=== PATIENT | male | born 1940 | race Caucasian/White ===

== ENCOUNTER 2018-08-25 17:49 | Inpatient (IN) ==
[~2018-08-25 17:49] MED LIST: *HR* Etomidate 20 MG/10 ML AMPUL IVP ONE; *HR* Rocuronium Bromide 100 MG/10 ML VIAL IVC ONE
[2018-08-25] MEDS ORDERED: Dexmedetomidine HCl 400 MCG/100 ML MLS IVC ONE (17:57)
[2018-08-25] MEDS ORDERED: Isovue-370 500 ML BOTTLE IVP ONE (18:09)
[2018-08-25] MEDS ORDERED: Cefepime HCl 1,000 MG in Water for inj. (sterile) 10 ML IVP STA (18:10)
[2018-08-25] MEDS ORDERED: levoFLOXacin 750 MG/150 ML 750 MG/150 ML BAG IVPB ONE (18:11)
[2018-08-25] MEDS ORDERED: *HR* Rocuronium Bromide 50 MG/5 ML VIAL IVP ONE (18:12)
[2018-08-25] MEDS ORDERED: *HR* Etomidate 20 MG/10 ML AMPUL IVP ONE (18:12)
[2018-08-25 18:14] LABS: ABG Base Excess 6 mEq/L (-2 to 3); ABG HCO3 39 mEq/L (21-27); ABG Oxygen Saturation 99 % (95-98); ABG PCO2 90 mmHg (35-45); ABG PH 7.25 pH Units (7.32-7.45); ABG PO2 186 mmHg (85-104); ABG TCO2 42 mEq/L (20-26)
[2018-08-25] MEDS ORDERED: Dexmedetomidine HCl 400 MCG/100 ML MLS IVC SCH (18:15)
[2018-08-25] MEDS ORDERED: Furosemide 40 MG/4 ML VIAL IVP ONE (18:16)
[2018-08-25] MEDS ORDERED: Cefepime HCl 2,000 MG in Water for inj. (sterile) 20 ML IVP STA (18:36)
[2018-08-25 18:41] LABS: Basophils # 0.1 K/mcL (0.0-0.2); Basophils % 0.9 %; Eosinophils # 0.1 K/mcL (0.0-0.6); Eosinophils % 0.9 %; Hematocrit 54.5 % (37.5-50.1); Hemoglobin 16.5 g/dL (12.9-16.9); Lymphocytes # 1.3 K/mcL (0.6-4.6); Lymphocytes % 15.8 %; Mean Corpuscular HGB Conc 30.3 g/dL (31.6-35.5); Mean Corpuscular Hemoglobin 30.3 pg (28.0-33.3); Mean Corpuscular Volume 100.2 fL (83.0-100.0); Mean Platelet Volume 10.5 fL (9.4-12.4); Monocytes # 1.1 K/mcL (0.0-1.3); Monocytes % 14.2 %; Neutrophils # 5.3 K/mcL (1.6-8.9); Nucleated Red Blood Cells 1.6 /100 WBC (0); Platelet Count 125 K/mcL (140-400); Red Blood Count 5.44 M/mcL (4.19-5.50); Red Cell Distribution Width 15.9 % (11.5-14.5); Segmented Neutrophils % 67.2 %; White Blood Count 7.9 K/mcL (4.3-11.1)
[2018-08-25] MEDS ORDERED: Nitroglycerin 25 MG/250 ML INFUS..BTL IVC SCH (19:00)
[2018-08-25] MEDS ORDERED: Nitroglycerin 25 MG/250 ML INFUS..BTL IVC ONE (19:01)
[2018-08-25 19:03] LABS: Bilirubin,Urine Negative (Negative); Blood,Urine Small (Negative); Clarity,Urine Clear (Clear); Color,Urine Yellow (Yellow); Glucose,Urine (UA) Normal (Normal); Ketones,Urine Negative (Negative); Leukocyte Esterase,Urine Large (Negative); Nitrite,Urine Negative (Negative); Protein,Urine Negative (Neg-Trace); Specific Gravity,Urine 1.027 (1.010-1.025); Urobilinogen,Urine Normal (Normal)
[2018-08-25 19:07] LABS: BUN/Creatinine Ratio 20 (6-26); Blood Urea Nitrogen 18 mg/dL (8-23); Calcium 9.1 mg/dL (8.6-10.3); Carbon Dioxide 40 mEq/L (23-29); Chloride 91 mEq/L (98-107); Glucose 108 mg/dL (70-105); Osmolality,Calculated 286 (280-300); Potassium 4.2 mEq/L (3.5-5.1); Sodium 137 mEq/L (136-145); eGFR For African Americans > 60 (> 60); eGFR For Non-African Americans > 60 (> 60)
[2018-08-25 19:09] LABS: Bacteria,Urine Few per hpf (None-Few); Hyaline Casts,Urine None Seen per lpf (None-Few); Squamous Epithelial Cell,Urine Few per lpf (None-Few); WBC,Urine 50-100 per hpf (0-3)
[2018-08-25] MEDS ORDERED: 0.9 % Sodium Chloride 500 ML IVC ONE ×2 (20:33→22:05)
[2018-08-25 20:40] LABS: ABG Base Excess 11 mEq/L (-2 to 3); ABG HCO3 37 mEq/L (21-27); ABG Oxygen Saturation 87 % (95-98); ABG PCO2 50 mmHg (35-45); ABG PH 7.48 pH Units (7.32-7.45); ABG PO2 51 mmHg (85-104); ABG TCO2 39 mEq/L (20-26); Blood Gas Modality AF; Blood Gas VT 550 cc
[2018-08-25] MEDS ORDERED: *HR* Midazolam HCl 5 MG/5 ML VIAL IVP ONE ×2 (20:54)
[2018-08-25] MEDS ORDERED: Naloxone 0.4 MG/ML INJ IVP PRN (21:03)
[2018-08-25] MEDS ORDERED: Artificial Tears SOLN 15 ML BOTTLE BOTH EYES PRN (21:03)
[2018-08-25] MEDS: Ipratropium/Albuterol Neb 3 ML IH SCH (21:40)
[2018-08-25 22:51] LABS: ABG Base Excess 11 mEq/L (-2 to 3); ABG HCO3 38 mEq/L (21-27); ABG Oxygen Saturation 86 % (95-98); ABG PCO2 57 mmHg (35-45); ABG PH 7.43 pH Units (7.32-7.45); ABG PO2 52 mmHg (85-104); ABG TCO2 40 mEq/L (20-26); Blood Gas Modality AF; Blood Gas VT 550 cc
[2018-08-25] MEDS: Dexmedetomidine HCl 400 MCG/100 ML MLS IVC SCH (23:14)
[2018-08-25] MEDS: Artificial Tears SOLN 15 ML BOTTLE BOTH EYES SCH (23:34)
[2018-08-26] MEDS: *HR* Heparin 5,000 UNIT/ML VIAL SQ SCH ×4 (00:34→23:11)
[2018-08-26 02:09] LABS: Basophils % 0.5 %; Eosinophils # 0.1 K/mcL (0.0-0.6); Eosinophils % 1.3 %; Hematocrit 49.4 % (37.5-50.1); Hemoglobin 15.4 g/dL (12.9-16.9); Immature Granulocytes % 0.4 % (0-4); Lymphocytes # 1.2 K/mcL (0.6-4.6); Lymphocytes % 15.5 %; Mean Corpuscular HGB Conc 31.2 g/dL (31.6-35.5); Mean Corpuscular Hemoglobin 30.3 pg (28.0-33.3); Mean Corpuscular Volume 97.2 fL (83.0-100.0); Mean Platelet Volume 11.1 fL (9.4-12.4); Monocytes # 1.5 K/mcL (0.0-1.3); Nucleated Red Blood Cells 0.6 /100 WBC (0); Platelet Count 116 K/mcL (140-400); Red Blood Count 5.08 M/mcL (4.19-5.50); Red Cell Distribution Width 15.5 % (11.5-14.5); Segmented Neutrophils % 63.3 %; White Blood Count 7.9 K/mcL (4.3-11.1)
[2018-08-26 02:31] LABS: BUN/Creatinine Ratio 20 (6-26); Blood Urea Nitrogen 18 mg/dL (8-23); Calcium 8.5 mg/dL (8.6-10.3); Carbon Dioxide 34 mEq/L (23-29); Chloride 94 mEq/L (98-107); Glucose 91 mg/dL (70-105); Magnesium 1.9 mg/dL (1.6-2.6); Osmolality,Calculated 283 (280-300); Phosphorous 3.2 mg/dL (2.7-4.5); Potassium 4.1 mEq/L (3.5-5.1); Sodium 136 mEq/L (136-145); eGFR For African Americans > 60 (> 60); eGFR For Non-African Americans > 60 (> 60)
[2018-08-26 02:39] LABS: Platelet Estimate Normal (Normal)
[2018-08-26] MEDS: Ipratropium/Albuterol Neb 3 ML IH SCH ×4 (03:59→21:10)
[2018-08-26] MEDS ORDERED: 0.9 % Sodium Chloride 250 ML ONE ×2 (04:31→20:45)
[2018-08-26] MEDS: Artificial Tears SOLN 15 ML BOTTLE BOTH EYES SCH ×6 (05:04→23:06)
[2018-08-26] MEDS: MethylPREDNISolone 40 MG/ML VIAL IVP SCH ×4 (05:04→23:09)
[2018-08-26 05:19] LABS: ABG Base Excess 11 mEq/L (-2 to 3); ABG HCO3 38 mEq/L (21-27); ABG Oxygen Saturation 88 % (95-98); ABG PCO2 58 mmHg (35-45); ABG PH 7.43 pH Units (7.32-7.45); ABG PO2 54 mmHg (85-104); ABG TCO2 40 mEq/L (20-26); Blood Gas Modality AF; Blood Gas VT 550 cc
[2018-08-26] MEDS: Pantoprazole 40 MG VIAL IVP SCH (08:33)
[2018-08-26] MEDS: Chlorhexidine Rinse 15 ML MOUTHWASH MM SCH ×2 (08:33→20:46)
[2018-08-26] MEDS: Azithromycin 500 MG in D5% in Water 250 ML IVPB SCH (10:08)
[2018-08-26] MEDS: Dexmedetomidine HCl 400 MCG/100 ML MLS IVC SCH ×2 (14:24→15:47)
[2018-08-26] MEDS: Cefepime HCl 1,000 MG in Water for inj. (sterile) 10 ML IVP SCH (17:37)
[2018-08-26] MEDS ORDERED: levoFLOXacin 500 MG/100 ML 500 MG/100 ML BAG IVPB SCH (18:00)
[2018-08-27] MEDS: Ipratropium/Albuterol Neb 3 ML IH SCH ×4 (03:48→21:24)
[2018-08-27 04:47] LABS: Basophils % 0.1 %; Eosinophils % 0.1 %; Hemoglobin 15.2 g/dL (12.9-16.9); Immature Granulocytes % 0.7 % (0-4); Lymphocytes # 0.2 K/mcL (0.6-4.6); Mean Corpuscular HGB Conc 32.3 g/dL (31.6-35.5); Mean Corpuscular Hemoglobin 30.3 pg (28.0-33.3); Mean Corpuscular Volume 93.6 fL (83.0-100.0); Monocytes # 0.3 K/mcL (0.0-1.3); Monocytes % 4.1 %; Platelet Count 126 K/mcL (140-400); Red Blood Count 5.02 M/mcL (4.19-5.50); Red Cell Distribution Width 15.7 % (11.5-14.5); White Blood Count 7.7 K/mcL (4.3-11.1)
[2018-08-27] MEDS: Artificial Tears SOLN 15 ML BOTTLE BOTH EYES SCH ×6 (04:54→23:15)
[2018-08-27] MEDS: Dexmedetomidine HCl 400 MCG/100 ML MLS IVC SCH ×2 (04:55→20:22)
[2018-08-27] MEDS: Cefepime HCl 1,000 MG in Water for inj. (sterile) 10 ML IVP SCH ×2 (04:57→18:28)
[2018-08-27] MEDS: MethylPREDNISolone 40 MG/ML VIAL IVP SCH ×4 (04:57→23:30)
[2018-08-27 05:00] LABS: BUN/Creatinine Ratio 28 (6-26); Blood Urea Nitrogen 26 mg/dL (8-23); Calcium 8.3 mg/dL (8.6-10.3); Carbon Dioxide 32 mEq/L (23-29); Chloride 92 mEq/L (98-107); Glucose 232 mg/dL (70-105); Osmolality,Calculated 294 (280-300); Potassium 3.4 mEq/L (3.5-5.1); Sodium 136 mEq/L (136-145); eGFR For African Americans > 60 (> 60); eGFR For Non-African Americans > 60 (> 60)
[2018-08-27] MEDS ORDERED: Potassium Chloride Elixir 20 MEQ/15 ML UDC PO ONE (05:39)
[2018-08-27 05:51] LABS: ABG Base Excess 7 mEq/L (-2 to 3); ABG HCO3 33 mEq/L (21-27); ABG Oxygen Saturation 94 % (95-98); ABG PCO2 50 mmHg (35-45); ABG PH 7.42 pH Units (7.32-7.45); ABG PO2 70 mmHg (85-104); ABG TCO2 34 mEq/L (20-26); Blood Gas Modality ASSIST CONTROL; Blood Gas VT 480 cc
[2018-08-27] MEDS: Chlorhexidine Rinse 15 ML MOUTHWASH MM SCH ×2 (08:34→20:46)
[2018-08-27] MEDS: Pantoprazole 40 MG VIAL IVP SCH (08:34)
[2018-08-27] MEDS: *HR* Heparin 5,000 UNIT/ML VIAL SQ SCH ×3 (08:34→23:33)
[2018-08-27] MEDS ORDERED: Furosemide 40 MG/4 ML VIAL IVP ONE (09:07)
[2018-08-27] MEDS: Azithromycin 500 MG in D5% in Water 250 ML IVPB SCH (09:33)
[2018-08-27] MEDS ORDERED: Acetaminophen 325 MG TABLET PO ONE (18:21)
[2018-08-28] MEDS: Artificial Tears SOLN 15 ML BOTTLE BOTH EYES SCH (03:47)
[2018-08-28] MEDS: Ipratropium/Albuterol Neb 3 ML IH SCH ×5 (03:50→23:04)
[2018-08-28 03:53] LABS: Basophils % 0.2 %; Hematocrit 48.7 % (37.5-50.1); Hemoglobin 15.6 g/dL (12.9-16.9); Immature Granulocytes % 0.7 % (0-4); Lymphocytes # 0.4 K/mcL (0.6-4.6); Lymphocytes % 3.1 %; Mean Corpuscular Hemoglobin 30.8 pg (28.0-33.3); Mean Corpuscular Volume 96.2 fL (83.0-100.0); Monocytes # 0.8 K/mcL (0.0-1.3); Monocytes % 6.2 %; Nucleated Red Blood Cells 0.3 /100 WBC (0); Platelet Count 138 K/mcL (140-400); Red Blood Count 5.06 M/mcL (4.19-5.50); Red Cell Distribution Width 15.8 % (11.5-14.5); Segmented Neutrophils % 89.8 %
[2018-08-28 03:55] LABS: White Blood Count 12.2 K/mcL (4.3-11.1)
[2018-08-28 04:20] LABS: BUN/Creatinine Ratio 34 (6-26); Blood Urea Nitrogen 32 mg/dL (8-23); Calcium 8.6 mg/dL (8.6-10.3); Carbon Dioxide 35 mEq/L (23-29); Chloride 94 mEq/L (98-107); Glucose 180 mg/dL (70-105); Osmolality,Calculated 293 (280-300); Potassium 4.5 mEq/L (3.5-5.1); Sodium 136 mEq/L (136-145); eGFR For African Americans > 60 (> 60); eGFR For Non-African Americans > 60 (> 60)
[2018-08-28] MEDS: Cefepime HCl 1,000 MG in Water for inj. (sterile) 10 ML IVP SCH ×2 (06:08→16:53)
[2018-08-28] MEDS ORDERED: MethylPREDNISolone 40 MG/ML VIAL IVP SCH (07:45)
[2018-08-28] MEDS: *HR* Heparin 5,000 UNIT/ML VIAL SQ SCH ×3 (08:13→23:33)
[2018-08-28] MEDS ORDERED: Ipratropium/Albuterol Neb 3 ML IH SCH (08:30)
[2018-08-28] MEDS ORDERED: predniSONE 20 MG TABLET PO SCH (09:00)
[2018-08-28] MEDS: Azithromycin 500 MG in D5% in Water 250 ML IVPB SCH (09:01)
[2018-08-28] MEDS ORDERED: Ipratropium/Albuterol Neb 3 ML IH PRN (09:54)
[2018-08-28] MEDS ORDERED: Naloxone 0.4 MG/ML INJ IVP PRN (09:54)
[2018-08-28] MEDS ORDERED: Budesonide/Formoterol 160/4.5 1 PUFF INH IH SCH (10:00)
[2018-08-28] MEDS: Ziprasidone 80 MG CAPSULE PO SCH ×2 (10:43→16:53)
[2018-08-28] MEDS: Famotidine 20 MG TABLET PO SCH ×2 (10:43→20:32)
[2018-08-28] MEDS: Sennosides/Docusate Sodium TABLET PO SCH ×2 (10:43→20:32)
[2018-08-28] MEDS: *HR* LORazepam 1 MG TABLET PO SCH ×2 (10:43→20:32)
[2018-08-28] MEDS: Budesonide/Formoterol 160/4.5 1 PUFF INH IH SCH ×2 (10:54→20:14)
[2018-08-29] MEDS: Ipratropium/Albuterol Neb 3 ML IH SCH ×6 (03:24→23:24)
[2018-08-29] MEDS: Cefepime HCl 1,000 MG in Water for inj. (sterile) 10 ML IVP SCH ×2 (04:49→17:09)
[2018-08-29 05:04] LABS: Basophils % 0.2 %; Hematocrit 47.7 % (37.5-50.1); Hemoglobin 15.3 g/dL (12.9-16.9); Immature Granulocytes % 0.4 % (0-4); Lymphocytes # 1.1 K/mcL (0.6-4.6); Lymphocytes % 10.6 %; Mean Corpuscular HGB Conc 32.1 g/dL (31.6-35.5); Mean Corpuscular Hemoglobin 30.2 pg (28.0-33.3); Mean Corpuscular Volume 94.1 fL (83.0-100.0); Mean Platelet Volume 11.4 fL (9.4-12.4); Monocytes # 1.1 K/mcL (0.0-1.3); Monocytes % 10.8 %; Neutrophils # 7.7 K/mcL (1.6-8.9); Platelet Count 140 K/mcL (140-400); Red Blood Count 5.07 M/mcL (4.19-5.50); Red Cell Distribution Width 15.7 % (11.5-14.5); White Blood Count 9.9 K/mcL (4.3-11.1)
[2018-08-29 05:27] LABS: BUN/Creatinine Ratio 34 (6-26); Blood Urea Nitrogen 24 mg/dL (8-23); Calcium 8.5 mg/dL (8.6-10.3); Carbon Dioxide 33 mEq/L (23-29); Chloride 99 mEq/L (98-107); Glucose 123 mg/dL (70-105); Osmolality,Calculated 289 (280-300); Potassium 4.1 mEq/L (3.5-5.1); Sodium 137 mEq/L (136-145); eGFR For African Americans > 60 (> 60); eGFR For Non-African Americans > 60 (> 60)
[2018-08-29] MEDS: Budesonide/Formoterol 160/4.5 1 PUFF INH IH SCH ×2 (07:47→20:32)
[2018-08-29] MEDS: *HR* LORazepam 1 MG TABLET PO SCH ×2 (09:32→22:32)
[2018-08-29] MEDS: Sennosides/Docusate Sodium TABLET PO SCH ×2 (09:34→22:33)
[2018-08-29] MEDS: Famotidine 20 MG TABLET PO SCH ×2 (09:34→22:33)
[2018-08-29] MEDS: Ziprasidone 80 MG CAPSULE PO SCH ×2 (09:34→17:08)
[2018-08-29] MEDS: predniSONE 20 MG TABLET PO SCH (09:34)
[2018-08-29] MEDS: Azithromycin 500 MG in D5% in Water 250 ML IVPB SCH (09:35)
[2018-08-29] MEDS: *HR* Heparin 5,000 UNIT/ML VIAL SQ SCH ×3 (09:35→22:33)
[2018-08-30] MEDS: Ipratropium/Albuterol Neb 3 ML IH SCH ×6 (03:39→23:45)
[2018-08-30 05:13] LABS: Basophils % 0.1 %; Hemoglobin 15.8 g/dL (12.9-16.9); Immature Granulocytes % 0.5 % (0-4); Lymphocytes # 1.3 K/mcL (0.6-4.6); Lymphocytes % 16.4 %; Mean Corpuscular HGB Conc 32.2 g/dL (31.6-35.5); Mean Corpuscular Hemoglobin 30.5 pg (28.0-33.3); Mean Corpuscular Volume 94.6 fL (83.0-100.0); Mean Platelet Volume 10.7 fL (9.4-12.4); Monocytes # 0.9 K/mcL (0.0-1.3); Monocytes % 11.2 %; Neutrophils # 5.9 K/mcL (1.6-8.9); Platelet Count 119 K/mcL (140-400); Red Blood Count 5.18 M/mcL (4.19-5.50); Red Cell Distribution Width 15.7 % (11.5-14.5); Segmented Neutrophils % 71.8 %; White Blood Count 8.2 K/mcL (4.3-11.1)
[2018-08-30] MEDS: Cefepime HCl 1,000 MG in Water for inj. (sterile) 10 ML IVP SCH (05:32)
[2018-08-30] MEDS: Budesonide/Formoterol 160/4.5 1 PUFF INH IH SCH ×2 (07:27→20:20)
[2018-08-30 08:46] LABS: BUN/Creatinine Ratio 34 (6-26); Blood Urea Nitrogen 25 mg/dL (8-23); Calcium 8.8 mg/dL (8.6-10.3); Carbon Dioxide 34 mEq/L (23-29); Chloride 99 mEq/L (98-107); Glucose 96 mg/dL (70-105); Osmolality,Calculated 288 (280-300); Potassium 4.1 mEq/L (3.5-5.1); Sodium 137 mEq/L (136-145); eGFR For African Americans > 60 (> 60); eGFR For Non-African Americans > 60 (> 60)
[2018-08-30] MEDS: Azithromycin 500 MG in D5% in Water 250 ML IVPB SCH (09:15)
[2018-08-30] MEDS: Famotidine 20 MG TABLET PO SCH ×2 (09:15→20:35)
[2018-08-30] MEDS: predniSONE 20 MG TABLET PO SCH (09:16)
[2018-08-30] MEDS: Sennosides/Docusate Sodium TABLET PO SCH ×2 (09:16→20:35)
[2018-08-30] MEDS: *HR* LORazepam 1 MG TABLET PO SCH ×2 (09:16→20:35)
[2018-08-30] MEDS: *HR* Heparin 5,000 UNIT/ML VIAL SQ SCH ×3 (09:16→23:13)
[2018-08-30] MEDS: Furosemide 40 MG TABLET PO SCH (09:16)
[2018-08-30] MEDS: Aspirin 81 MG TAB.CHEW PO SCH (09:16)
[2018-08-30] MEDS: Ziprasidone 80 MG CAPSULE PO SCH ×2 (09:16→16:46)
[2018-08-31] MEDS: Ipratropium/Albuterol Neb 3 ML IH SCH ×6 (03:46→23:22)
[2018-08-31 07:24] LABS: Basophils % 0.1 %; Eosinophils # 0.1 K/mcL (0.0-0.6); Eosinophils % 0.8 %; Hematocrit 49.8 % (37.5-50.1); Hemoglobin 16.4 g/dL (12.9-16.9); Immature Granulocytes % 0.5 % (0-4); Lymphocytes # 1.7 K/mcL (0.6-4.6); Lymphocytes % 18.3 %; Mean Corpuscular HGB Conc 32.9 g/dL (31.6-35.5); Mean Corpuscular Hemoglobin 30.3 pg (28.0-33.3); Mean Corpuscular Volume 91.9 fL (83.0-100.0); Mean Platelet Volume 10.5 fL (9.4-12.4); Monocytes % 11.2 %; Neutrophils # 6.4 K/mcL (1.6-8.9); Platelet Count 132 K/mcL (140-400); Red Blood Count 5.42 M/mcL (4.19-5.50); Red Cell Distribution Width 15.6 % (11.5-14.5); Segmented Neutrophils % 69.1 %; White Blood Count 9.3 K/mcL (4.3-11.1)
[2018-08-31] MEDS: Budesonide/Formoterol 160/4.5 1 PUFF INH IH SCH ×2 (07:37→20:16)
[2018-08-31 07:43] LABS: BUN/Creatinine Ratio 30 (6-26); Blood Urea Nitrogen 24 mg/dL (8-23); Calcium 8.8 mg/dL (8.6-10.3); Carbon Dioxide 32 mEq/L (23-29); Chloride 97 mEq/L (98-107); Glucose 98 mg/dL (70-105); Osmolality,Calculated 284 (280-300); Potassium 4.3 mEq/L (3.5-5.1); Sodium 135 mEq/L (136-145); eGFR For African Americans > 60 (> 60); eGFR For Non-African Americans > 60 (> 60)
[2018-08-31] MEDS: *HR* Heparin 5,000 UNIT/ML VIAL SQ SCH ×3 (09:20→23:42)
[2018-08-31] MEDS: *HR* LORazepam 1 MG TABLET PO SCH ×2 (09:20→20:42)
[2018-08-31] MEDS: Furosemide 40 MG TABLET PO SCH (09:21)
[2018-08-31] MEDS: Aspirin 81 MG TAB.CHEW PO SCH (09:21)
[2018-08-31] MEDS: predniSONE 20 MG TABLET PO SCH (09:21)
[2018-08-31] MEDS: Famotidine 20 MG TABLET PO SCH ×2 (09:21→20:42)
[2018-08-31] MEDS: Ziprasidone 80 MG CAPSULE PO SCH ×2 (09:21→16:34)
[2018-08-31] MEDS: Sennosides/Docusate Sodium TABLET PO SCH ×2 (09:21→20:41)
[2018-08-31] MEDS ORDERED: Fosfomycin Tromethamine 3 GM Packet PO ONE (13:15)
[2018-09-01] MEDS: Ipratropium/Albuterol Neb 3 ML IH SCH ×5 (03:04→19:32)
[2018-09-01] MEDS: Budesonide/Formoterol 160/4.5 1 PUFF INH IH SCH ×2 (07:25→19:29)
[2018-09-01 08:23] LABS: BUN/Creatinine Ratio 27 (6-26); Blood Urea Nitrogen 22 mg/dL (8-23); Calcium 8.7 mg/dL (8.6-10.3); Carbon Dioxide 32 mEq/L (23-29); Chloride 96 mEq/L (98-107); Glucose 92 mg/dL (70-105); Osmolality,Calculated 279 (280-300); Potassium 4.4 mEq/L (3.5-5.1); Sodium 133 mEq/L (136-145); eGFR For African Americans > 60 (> 60); eGFR For Non-African Americans > 60 (> 60)
[2018-09-01] MEDS: Sennosides/Docusate Sodium TABLET PO SCH ×2 (08:56→20:21)
[2018-09-01] MEDS: predniSONE 20 MG TABLET PO SCH (08:56)
[2018-09-01] MEDS: Famotidine 20 MG TABLET PO SCH ×2 (08:56→20:21)
[2018-09-01] MEDS: Furosemide 40 MG TABLET PO SCH (08:57)
[2018-09-01] MEDS: Aspirin 81 MG TAB.CHEW PO SCH (08:57)
[2018-09-01] MEDS: *HR* Heparin 5,000 UNIT/ML VIAL SQ SCH ×3 (08:57→23:30)
[2018-09-01] MEDS: Ziprasidone 80 MG CAPSULE PO SCH ×2 (08:57→17:26)
[2018-09-01] MEDS: *HR* LORazepam 1 MG TABLET PO SCH ×2 (08:57→20:21)
[2018-09-02] MEDS: Ipratropium/Albuterol Neb 3 ML IH SCH ×7 (00:14→23:07)
[2018-09-02] MEDS: Budesonide/Formoterol 160/4.5 1 PUFF INH IH SCH ×2 (07:29→19:50)
[2018-09-02] MEDS: *HR* Heparin 5,000 UNIT/ML VIAL SQ SCH ×2 (08:50→15:11)
[2018-09-02] MEDS: Sennosides/Docusate Sodium TABLET PO SCH ×2 (08:50→20:13)
[2018-09-02] MEDS: Famotidine 20 MG TABLET PO SCH ×2 (08:51→20:13)
[2018-09-02] MEDS: *HR* LORazepam 1 MG TABLET PO SCH ×2 (08:51→20:13)
[2018-09-02] MEDS: predniSONE 20 MG TABLET PO SCH (08:51)
[2018-09-02] MEDS: Ziprasidone 80 MG CAPSULE PO SCH ×2 (08:51→17:20)
[2018-09-02] MEDS: Aspirin 81 MG TAB.CHEW PO SCH (08:51)
[2018-09-02 09:23] LABS: BUN/Creatinine Ratio 30 (6-26); Blood Urea Nitrogen 25 mg/dL (8-23); Calcium 8.8 mg/dL (8.6-10.3); Carbon Dioxide 28 mEq/L (23-29); Chloride 95 mEq/L (98-107); Glucose 93 mg/dL (70-105); Osmolality,Calculated 276 (280-300); Potassium 4.1 mEq/L (3.5-5.1); Sodium 131 mEq/L (136-145); eGFR For African Americans > 60 (> 60); eGFR For Non-African Americans > 60 (> 60)
[2018-09-02] MEDS ORDERED: 0.9 % Sodium Chloride 500 ML IVC SCH ×2 (17:00→17:15)
[2018-09-03] MEDS: *HR* Heparin 5,000 UNIT/ML VIAL SQ SCH ×3 (00:28→15:32)
[2018-09-03 03:45] LABS: BUN/Creatinine Ratio 30 (6-26); Blood Urea Nitrogen 24 mg/dL (8-23); Calcium 8.8 mg/dL (8.6-10.3); Carbon Dioxide 31 mEq/L (23-29); Chloride 98 mEq/L (98-107); Glucose 129 mg/dL (70-105); Osmolality,Calculated 282 (280-300); Potassium 4.5 mEq/L (3.5-5.1); Sodium 133 mEq/L (136-145); eGFR For African Americans > 60 (> 60); eGFR For Non-African Americans > 60 (> 60)
[2018-09-03] MEDS: Ipratropium/Albuterol Neb 3 ML IH SCH ×6 (03:46→23:42)
[2018-09-03] MEDS: Budesonide/Formoterol 160/4.5 1 PUFF INH IH SCH ×2 (07:36→20:05)
[2018-09-03] MEDS: Ziprasidone 80 MG CAPSULE PO SCH ×2 (08:19→16:19)
[2018-09-03] MEDS: *HR* LORazepam 1 MG TABLET PO SCH ×2 (08:19→20:19)
[2018-09-03] MEDS: Famotidine 20 MG TABLET PO SCH ×2 (08:19→20:20)
[2018-09-03] MEDS: Sennosides/Docusate Sodium TABLET PO SCH ×2 (08:19→20:19)
[2018-09-03] MEDS: Aspirin 81 MG TAB.CHEW PO SCH (08:19)
[2018-09-03] MEDS: predniSONE 20 MG TABLET PO SCH (08:23)
[2018-09-04] MEDS: *HR* Heparin 5,000 UNIT/ML VIAL SQ SCH ×3 (01:30→15:08)
[2018-09-04] MEDS: Ipratropium/Albuterol Neb 3 ML IH SCH ×6 (04:06→23:19)
[2018-09-04] MEDS: Budesonide/Formoterol 160/4.5 1 PUFF INH IH SCH ×2 (07:24→19:44)
[2018-09-04] MEDS: Famotidine 20 MG TABLET PO SCH ×2 (08:18→20:22)
[2018-09-04] MEDS: Aspirin 81 MG TAB.CHEW PO SCH (08:18)
[2018-09-04] MEDS: predniSONE 20 MG TABLET PO SCH (08:18)
[2018-09-04] MEDS: Ziprasidone 80 MG CAPSULE PO SCH ×2 (08:18→16:55)
[2018-09-04] MEDS: Sennosides/Docusate Sodium TABLET PO SCH ×2 (08:18→20:22)
[2018-09-04] MEDS: *HR* LORazepam 1 MG TABLET PO SCH ×2 (08:18→20:22)
[2018-09-04 08:30] LABS: BUN/Creatinine Ratio 32 (6-26); Blood Urea Nitrogen 27 mg/dL (8-23); Calcium 8.6 mg/dL (8.6-10.3); Carbon Dioxide 30 mEq/L (23-29); Chloride 99 mEq/L (98-107); Glucose 98 mg/dL (70-105); Osmolality,Calculated 283 (280-300); Potassium 4.4 mEq/L (3.5-5.1); Sodium 134 mEq/L (136-145); eGFR For African Americans > 60 (> 60); eGFR For Non-African Americans > 60 (> 60)
[2018-09-05] MEDS: Ipratropium/Albuterol Neb 3 ML IH SCH ×5 (04:04→20:01)
[2018-09-05] MEDS: Budesonide/Formoterol 160/4.5 1 PUFF INH IH SCH ×2 (07:31→20:01)
[2018-09-05] MEDS: *HR* LORazepam 1 MG TABLET PO SCH ×2 (08:44→20:13)
[2018-09-05] MEDS: Sennosides/Docusate Sodium TABLET PO SCH ×2 (08:44→20:13)
[2018-09-05] MEDS: Ziprasidone 80 MG CAPSULE PO SCH ×2 (08:45→15:42)
[2018-09-05] MEDS: *HR* Heparin 5,000 UNIT/ML VIAL SQ SCH ×3 (08:45→15:42)
[2018-09-05] MEDS: Aspirin 81 MG TAB.CHEW PO SCH (08:45)
[2018-09-05] MEDS: Famotidine 20 MG TABLET PO SCH ×2 (08:45→20:13)
[2018-09-05] MEDS: predniSONE 20 MG TABLET PO SCH (08:45)
[2018-09-06] MEDS: Ipratropium/Albuterol Neb 3 ML IH SCH ×3 (00:04→07:55)
[2018-09-06] MEDS: *HR* Heparin 5,000 UNIT/ML VIAL SQ SCH ×2 (00:45→08:59)
[2018-09-06 07:15] VITALS: BP 152/81
[2018-09-06] MEDS: Budesonide/Formoterol 160/4.5 1 PUFF INH IH SCH (07:55)
[2018-09-06] MEDS: predniSONE 20 MG TABLET PO SCH (08:58)
[2018-09-06] MEDS: Aspirin 81 MG TAB.CHEW PO SCH (08:58)
[2018-09-06] MEDS: Sennosides/Docusate Sodium TABLET PO SCH (08:58)
[2018-09-06] MEDS: Famotidine 20 MG TABLET PO SCH (08:58)
[2018-09-06] MEDS: Ziprasidone 80 MG CAPSULE PO SCH (08:58)
[2018-09-06] MEDS: *HR* LORazepam 1 MG TABLET PO SCH (08:58)
== END 2018-09-06 10:08 | DRG 208 ==
LOC: EMEROOARM 17:49 → ICNU 20:34 → SUATTDRO 20:34 → ICNU 21:12 → 2NENU 08-28 09:46
PROVIDERS: ADMIT Family Medicine; ATTEND Internal Medicine

== ENCOUNTER 2020-01-17 16:43 | Inpatient (IN) ==
[2020-01-17 17:31] LABS: Basophils % 0.8 %; Hemoglobin 12.3 g/dL (12.9-16.9); Immature Granulocytes % 0.6 % (0-4)
[2020-01-17 17:34] LABS: Basophils # 0.1 K/mcL (0.0-0.2); Eosinophils # 0.4 K/mcL (0.0-0.6); Eosinophils % 4.6 %; Hematocrit 42.5 % (37.5-50.1); Lymphocytes % 21.1 %; Mean Corpuscular HGB Conc 28.9 g/dL (31.6-35.5); Mean Corpuscular Hemoglobin 29.4 pg (28.0-33.3); Mean Corpuscular Volume 101.4 fL (83.0-100.0); Mean Platelet Volume 11.4 fL (9.4-12.4); Monocytes % 12.8 %; Neutrophils # 4.7 K/mcL (1.6-8.9); Platelet Count 138 K/mcL (140-400); Red Blood Count 4.19 M/mcL (4.19-5.50); Red Cell Distribution Width 15.3 % (11.5-14.5); Segmented Neutrophils % 60.1 %; White Blood Count 7.8 K/mcL (4.3-11.1)
[2020-01-17 17:35] LABS: Lymphocytes # 1.7 K/mcL (0.6-4.6)
[2020-01-17 17:39] LABS: ABG Base Excess 8 mEq/L (-2 to 3); ABG HCO3 40 mEq/L (21-27); ABG Oxygen Saturation 96 % (95-98); ABG PCO2 88 mmHg (35-45); ABG PH 7.26 pH Units (7.32-7.45); ABG PO2 101 mmHg (85-104); ABG TCO2 42 mEq/L (20-26)
[2020-01-17 17:42] LABS: BUN/Creatinine Ratio 24 (6-26); Blood Urea Nitrogen 25 mg/dL (8-23); Calcium 8.8 mg/dL (8.6-10.3); Carbon Dioxide 39 mEq/L (23-29); Chloride 99 mEq/L (98-107); Glucose 125 mg/dL (70-105); Osmolality,Calculated 294 (280-300); Potassium 4.5 mEq/L (3.5-5.1); Sodium 139 mEq/L (136-145); eGFR For African Americans > 60 (> 60); eGFR For Non-African Americans > 60 (> 60)
[2020-01-17 17:51] LABS: Platelet Estimate Decreased (Normal)
[2020-01-17 17:52] LABS: Hypochromasia Present (Not Present); Poikilocytosis 1+ (Not Present); Stomatocytes 1+ (Not Present)
[2020-01-17 17:59] LABS: Troponin I < 0.03 ng/mL (< 0.04)
[2020-01-17 18:37] LABS: ABG Base Excess 11 mEq/L (-2 to 3); ABG HCO3 41 mEq/L (21-27); ABG Oxygen Saturation 91 % (95-98); ABG PCO2 78 mmHg (35-45); ABG PH 7.33 pH Units (7.32-7.45); ABG PO2 68 mmHg (85-104); ABG TCO2 44 mEq/L (20-26)
[2020-01-17] MEDS ORDERED: Azithromycin 500 MG in 0.9 % Sodium Chloride 250 ML IVPB ONE (19:08)
[2020-01-17] MEDS ORDERED: Naloxone 0.4 MG/ML INJ IVP PRN (20:59)
[2020-01-17] MEDS ORDERED: Acetaminophen 325 MG TABLET PO PRN ×2 (20:59)
[2020-01-18] MEDS: *HR* Heparin 5,000 UNIT/ML VIAL SQ SCH ×4 (00:41→23:49)
[2020-01-18 03:46] LABS: ABG Base Excess 4 mEq/L (-2 to 3); ABG HCO3 35 mEq/L (21-27); ABG Oxygen Saturation 91 % (95-98); ABG PCO2 83 mmHg (35-45); ABG PH 7.23 pH Units (7.32-7.45); ABG PO2 76 mmHg (85-104); ABG TCO2 37 mEq/L (20-26); Blood Gas Modality NIV
[2020-01-18] MEDS ORDERED: Furosemide 40 MG/4 ML VIAL IVP ONE (03:48)
[2020-01-18 07:40] LABS: Hematocrit 39.4 % (37.5-50.1); Hemoglobin 11.8 g/dL (12.9-16.9); Immature Platelets 8.3 % (1.1-6.1); Mean Corpuscular HGB Conc 29.9 g/dL (31.6-35.5); Mean Corpuscular Hemoglobin 30.1 pg (28.0-33.3); Mean Corpuscular Volume 100.5 fL (83.0-100.0); Mean Platelet Volume 11.6 fL (9.4-12.4); Red Blood Count 3.92 M/mcL (4.19-5.50); Red Cell Distribution Width 15.2 % (11.5-14.5); White Blood Count 7.6 K/mcL (4.3-11.1)
[2020-01-18 07:57] LABS: BUN/Creatinine Ratio 23 (6-26); Blood Urea Nitrogen 23 mg/dL (8-23); Calcium 8.4 mg/dL (8.6-10.3); Carbon Dioxide 36 mEq/L (23-29); Chloride 99 mEq/L (98-107); Glucose 156 mg/dL (70-105); Osmolality,Calculated 295 (280-300); Potassium 4.2 mEq/L (3.5-5.1); Sodium 139 mEq/L (136-145); eGFR For African Americans > 60 (> 60); eGFR For Non-African Americans > 60 (> 60)
[2020-01-18] MEDS ORDERED: polyethylene glycoL 3350 17 GM POWD.PACK PO PRN (17:20)
[2020-01-18] MEDS: Spironolactone 25 MG TABLET PO SCH (17:32)
[2020-01-18] MEDS: Famotidine 20 MG TABLET PO SCH (20:13)
[2020-01-18] MEDS: Gabapentin 300 MG CAPSULE PO SCH (20:13)
[2020-01-18] MEDS: Furosemide 40 MG/4 ML VIAL IVP SCH (20:13)
[2020-01-18] MEDS: Budesonide/Formoterol 160/4.5 1 PUFF INH IH SCH (20:46)
[2020-01-18] MEDS ORDERED: Ipratropium/Albuterol Neb 3 ML IH PRN (22:00)
[2020-01-19 00:57] LABS: Basophils % 0.5 %; Eosinophils # 0.1 K/mcL (0.0-0.6); Eosinophils % 1.3 %; Hematocrit 37.9 % (37.5-50.1); Hemoglobin 11.4 g/dL (12.9-16.9); Immature Granulocytes % 0.5 % (0-4); Lymphocytes # 1.6 K/mcL (0.6-4.6); Lymphocytes % 18.8 %; Mean Corpuscular HGB Conc 30.1 g/dL (31.6-35.5); Mean Corpuscular Hemoglobin 29.4 pg (28.0-33.3); Mean Corpuscular Volume 97.7 fL (83.0-100.0); Mean Platelet Volume 10.7 fL (9.4-12.4); Monocytes # 0.8 K/mcL (0.0-1.3); Monocytes % 9.4 %; Neutrophils # 5.8 K/mcL (1.6-8.9); Platelet Count 129 K/mcL (140-400); Red Blood Count 3.88 M/mcL (4.19-5.50); Red Cell Distribution Width 15.2 % (11.5-14.5); Segmented Neutrophils % 69.5 %; White Blood Count 8.3 K/mcL (4.3-11.1)
[2020-01-19 00:58] LABS: VBG HCO3 36 mEq/L (21-27); VBG PCO2 56 mmHg (41-51); VBG PH 7.41 pH Units (7.32-7.42); VBG PO2 196 mmHg (25-50)
[2020-01-19 01:16] LABS: BUN/Creatinine Ratio 28 (6-26); Blood Urea Nitrogen 27 mg/dL (8-23); Calcium 8.2 mg/dL (8.6-10.3); Carbon Dioxide 35 mEq/L (23-29); Chloride 98 mEq/L (98-107); Glucose 128 mg/dL (70-105); Osmolality,Calculated 295 (280-300); Sodium 139 mEq/L (136-145); eGFR For African Americans > 60 (> 60); eGFR For Non-African Americans > 60 (> 60)
[2020-01-19] MEDS: *HR* Heparin 5,000 UNIT/ML VIAL SQ SCH ×3 (05:58→20:20)
[2020-01-19] MEDS: Budesonide/Formoterol 160/4.5 1 PUFF INH IH SCH ×2 (07:54→20:35)
[2020-01-19] MEDS: Aspirin 81 MG TAB.CHEW PO SCH (09:00)
[2020-01-19] MEDS: lisinopriL 5 MG TABLET PO SCH (09:00)
[2020-01-19] MEDS: Spironolactone 25 MG TABLET PO SCH (09:01)
[2020-01-19] MEDS: Gabapentin 300 MG CAPSULE PO SCH ×2 (09:01→20:19)
[2020-01-19] MEDS: Ziprasidone 80 MG CAPSULE PO SCH ×2 (09:01→17:44)
[2020-01-19] MEDS: Furosemide 40 MG/4 ML VIAL IVP SCH ×2 (09:01→20:19)
[2020-01-19] MEDS: Cholecalciferol (D-3) 1,000 UNIT (25MCG) TABLET PO SCH (09:01)
[2020-01-19] MEDS: Famotidine 20 MG TABLET PO SCH (20:18)
[2020-01-20 07:09] LABS: Basophils % 0.6 %
[2020-01-20 07:11] LABS: Eosinophils # 0.2 K/mcL (0.0-0.6); Hematocrit 38.7 % (37.5-50.1); Hemoglobin 11.7 g/dL (12.9-16.9); Immature Granulocytes % 0.8 % (0-4); Immature Platelets 6.4 % (1.1-6.1); Lymphocytes # 1.3 K/mcL (0.6-4.6); Lymphocytes % 19.1 %; Mean Corpuscular HGB Conc 30.2 g/dL (31.6-35.5); Mean Corpuscular Hemoglobin 29.3 pg (28.0-33.3); Mean Platelet Volume 11.4 fL (9.4-12.4); Monocytes # 0.9 K/mcL (0.0-1.3); Monocytes % 13.7 %; Neutrophils # 4.2 K/mcL (1.6-8.9); Platelet Count 130 K/mcL (140-400); Red Blood Count 3.99 M/mcL (4.19-5.50); Red Cell Distribution Width 15.1 % (11.5-14.5); Segmented Neutrophils % 62.8 %; White Blood Count 6.7 K/mcL (4.3-11.1)
[2020-01-20 07:22] LABS: BUN/Creatinine Ratio 26 (6-26); Blood Urea Nitrogen 27 mg/dL (8-23); Calcium 8.9 mg/dL (8.6-10.3); Carbon Dioxide 36 mEq/L (23-29); Chloride 100 mEq/L (98-107); Glucose 134 mg/dL (70-105); Osmolality,Calculated 297 (280-300); Potassium 3.7 mEq/L (3.5-5.1); Sodium 140 mEq/L (136-145); eGFR For African Americans > 60 (> 60); eGFR For Non-African Americans > 60 (> 60)
[2020-01-20] MEDS: Budesonide/Formoterol 160/4.5 1 PUFF INH IH SCH ×2 (07:48→20:16)
[2020-01-20] MEDS: *HR* Heparin 5,000 UNIT/ML VIAL SQ SCH ×3 (08:14→20:44)
[2020-01-20] MEDS: Furosemide 40 MG/4 ML VIAL IVP SCH ×2 (08:14→20:43)
[2020-01-20] MEDS: Cholecalciferol (D-3) 1,000 UNIT (25MCG) TABLET PO SCH (08:15)
[2020-01-20] MEDS: Spironolactone 25 MG TABLET PO SCH (08:15)
[2020-01-20] MEDS: lisinopriL 5 MG TABLET PO SCH (08:15)
[2020-01-20] MEDS: Aspirin 81 MG TAB.CHEW PO SCH (08:16)
[2020-01-20] MEDS: Ziprasidone 80 MG CAPSULE PO SCH ×2 (08:16→18:06)
[2020-01-20] MEDS: Gabapentin 300 MG CAPSULE PO SCH ×2 (08:16→20:43)
[2020-01-20] MEDS: Famotidine 20 MG TABLET PO SCH (20:42)
[2020-01-21 04:29] LABS: Basophils # 0.1 K/mcL (0.0-0.2); Basophils % 0.7 %; Eosinophils # 0.2 K/mcL (0.0-0.6); Eosinophils % 2.7 %; Hematocrit 40.3 % (37.5-50.1); Hemoglobin 12.5 g/dL (12.9-16.9); Immature Granulocytes % 0.7 % (0-4); Lymphocytes # 1.7 K/mcL (0.6-4.6); Mean Corpuscular Hemoglobin 29.8 pg (28.0-33.3); Mean Corpuscular Volume 96.2 fL (83.0-100.0); Mean Platelet Volume 11.1 fL (9.4-12.4); Monocytes % 12.9 %; Neutrophils # 4.4 K/mcL (1.6-8.9); Platelet Count 144 K/mcL (140-400); Red Blood Count 4.19 M/mcL (4.19-5.50); Red Cell Distribution Width 15.3 % (11.5-14.5); White Blood Count 7.4 K/mcL (4.3-11.1)
[2020-01-21 04:48] LABS: BUN/Creatinine Ratio 22 (6-26); Blood Urea Nitrogen 26 mg/dL (8-23); Calcium 9.1 mg/dL (8.6-10.3); Carbon Dioxide 36 mEq/L (23-29); Chloride 97 mEq/L (98-107); Glucose 135 mg/dL (70-105); Magnesium 1.9 mg/dL (1.6-2.6); Osmolality,Calculated 295 (280-300); Potassium 3.7 mEq/L (3.5-5.1); Sodium 139 mEq/L (136-145); eGFR For African Americans > 60 (> 60); eGFR For Non-African Americans 59 (> 60)
[2020-01-21] MEDS: *HR* Heparin 5,000 UNIT/ML VIAL SQ SCH ×3 (05:03→22:55)
[2020-01-21 05:04] LABS: VBG HCO3 36 mEq/L (21-27); VBG PCO2 61 mmHg (41-51); VBG PH 7.38 pH Units (7.32-7.42); VBG PO2 62 mmHg (25-50)
[2020-01-21] MEDS: Budesonide/Formoterol 160/4.5 1 PUFF INH IH SCH ×2 (07:49→22:01)
[2020-01-21] MEDS: Cholecalciferol (D-3) 1,000 UNIT (25MCG) TABLET PO SCH (08:53)
[2020-01-21] MEDS: Spironolactone 25 MG TABLET PO SCH (08:53)
[2020-01-21] MEDS: Aspirin 81 MG TAB.CHEW PO SCH (08:53)
[2020-01-21] MEDS: Gabapentin 300 MG CAPSULE PO SCH ×2 (08:53→22:55)
[2020-01-21] MEDS: lisinopriL 5 MG TABLET PO SCH (08:53)
[2020-01-21] MEDS: Ziprasidone 80 MG CAPSULE PO SCH ×2 (08:53→17:36)
[2020-01-21] MEDS: Furosemide 40 MG/4 ML VIAL IVP SCH ×2 (08:54→22:55)
[2020-01-21] MEDS: Famotidine 20 MG TABLET PO SCH (22:54)
[2020-01-22] MEDS: *HR* Heparin 5,000 UNIT/ML VIAL SQ SCH ×3 (05:23→21:54)
[2020-01-22 06:11] LABS: Basophils # 0.1 K/mcL (0.0-0.2); Eosinophils # 0.3 K/mcL (0.0-0.6); Eosinophils % 3.7 %; Hematocrit 42.9 % (37.5-50.1); Immature Granulocytes % 0.7 % (0-4); Lymphocytes # 1.5 K/mcL (0.6-4.6); Lymphocytes % 21.2 %; Mean Corpuscular HGB Conc 30.3 g/dL (31.6-35.5); Mean Corpuscular Hemoglobin 29.5 pg (28.0-33.3); Mean Corpuscular Volume 97.5 fL (83.0-100.0); Mean Platelet Volume 11.2 fL (9.4-12.4); Monocytes # 0.9 K/mcL (0.0-1.3); Monocytes % 12.9 %; Neutrophils # 4.4 K/mcL (1.6-8.9); Platelet Count 150 K/mcL (140-400); Red Cell Distribution Width 15.4 % (11.5-14.5); Segmented Neutrophils % 60.5 %; White Blood Count 7.2 K/mcL (4.3-11.1)
[2020-01-22 06:13] LABS: VBG HCO3 37 mEq/L (21-27); VBG PCO2 60 mmHg (41-51); VBG PO2 177 mmHg (25-50)
[2020-01-22 06:30] LABS: BUN/Creatinine Ratio 22 (6-26); Blood Urea Nitrogen 29 mg/dL (8-23); Calcium 9.2 mg/dL (8.6-10.3); Carbon Dioxide 37 mEq/L (23-29); Chloride 97 mEq/L (98-107); Glucose 138 mg/dL (70-105); Magnesium 2.1 mg/dL (1.6-2.6); Osmolality,Calculated 296 (280-300); Potassium 4.1 mEq/L (3.5-5.1); Sodium 139 mEq/L (136-145); eGFR For African Americans > 60 (> 60); eGFR For Non-African Americans 52 (> 60)
[2020-01-22] MEDS: Budesonide/Formoterol 160/4.5 1 PUFF INH IH SCH ×2 (08:04→20:16)
[2020-01-22] MEDS: Gabapentin 300 MG CAPSULE PO SCH ×2 (09:11→21:56)
[2020-01-22] MEDS: lisinopriL 5 MG TABLET PO SCH (09:11)
[2020-01-22] MEDS: Ziprasidone 80 MG CAPSULE PO SCH ×2 (09:11→17:33)
[2020-01-22] MEDS: Aspirin 81 MG TAB.CHEW PO SCH (09:11)
[2020-01-22] MEDS: Cholecalciferol (D-3) 1,000 UNIT (25MCG) TABLET PO SCH (09:11)
[2020-01-22] MEDS: Furosemide 40 MG/4 ML VIAL IVP SCH (09:15)
[2020-01-22] MEDS: Famotidine 20 MG TABLET PO SCH (21:57)
[2020-01-23 04:17] LABS: Basophils # 0.1 K/mcL (0.0-0.2); Basophils % 0.8 %; Eosinophils # 0.3 K/mcL (0.0-0.6); Eosinophils % 4.2 %; Hematocrit 42.5 % (37.5-50.1); Hemoglobin 12.8 g/dL (12.9-16.9); Immature Granulocytes % 0.5 % (0-4); Lymphocytes # 1.5 K/mcL (0.6-4.6); Lymphocytes % 19.9 %; Mean Corpuscular HGB Conc 30.1 g/dL (31.6-35.5); Mean Corpuscular Hemoglobin 29.7 pg (28.0-33.3); Mean Corpuscular Volume 98.6 fL (83.0-100.0); Mean Platelet Volume 11.1 fL (9.4-12.4); Monocytes % 13.3 %; Neutrophils # 4.7 K/mcL (1.6-8.9); Platelet Count 149 K/mcL (140-400); Red Blood Count 4.31 M/mcL (4.19-5.50); Red Cell Distribution Width 15.4 % (11.5-14.5); Segmented Neutrophils % 61.3 %; White Blood Count 7.7 K/mcL (4.3-11.1)
[2020-01-23 04:38] LABS: Calcium 9.3 mg/dL (8.6-10.3); Magnesium 2.2 mg/dL (1.6-2.6); Potassium 4.2 mEq/L (3.5-5.1)
[2020-01-23] MEDS: *HR* Heparin 5,000 UNIT/ML VIAL SQ SCH ×3 (05:55→21:40)
[2020-01-23] MEDS: Gabapentin 300 MG CAPSULE PO SCH ×2 (07:32→21:38)
[2020-01-23] MEDS: lisinopriL 5 MG TABLET PO SCH (07:32)
[2020-01-23] MEDS: Cholecalciferol (D-3) 1,000 UNIT (25MCG) TABLET PO SCH (07:32)
[2020-01-23] MEDS: Aspirin 81 MG TAB.CHEW PO SCH (07:32)
[2020-01-23] MEDS: Ziprasidone 80 MG CAPSULE PO SCH ×2 (07:33→16:49)
[2020-01-23] MEDS: Budesonide/Formoterol 160/4.5 1 PUFF INH IH SCH ×2 (07:49→20:32)
[2020-01-23 10:42] LABS: ABG Base Excess 11 mEq/L (-2 to 3); ABG HCO3 40 mEq/L (21-27); ABG Oxygen Saturation 89 % (95-98); ABG PCO2 71 mmHg (35-45); ABG PH 7.36 pH Units (7.32-7.45); ABG PO2 62 mmHg (85-104); ABG TCO2 42 mEq/L (20-26)
[2020-01-23 16:36] LABS: ABG Base Excess 11 mEq/L (-2 to 3); ABG HCO3 39 mEq/L (21-27); ABG Oxygen Saturation 90 % (95-98); ABG PCO2 62 mmHg (35-45); ABG PO2 61 mmHg (85-104); ABG TCO2 41 mEq/L (20-26)
[2020-01-23] MEDS: Famotidine 20 MG TABLET PO SCH (21:39)
[2020-01-24] MEDS: *HR* Heparin 5,000 UNIT/ML VIAL SQ SCH ×3 (05:16→23:18)
[2020-01-24] MEDS: Cholecalciferol (D-3) 1,000 UNIT (25MCG) TABLET PO SCH (07:39)
[2020-01-24] MEDS: Aspirin 81 MG TAB.CHEW PO SCH (07:39)
[2020-01-24] MEDS: Gabapentin 300 MG CAPSULE PO SCH (07:39)
[2020-01-24] MEDS: Ziprasidone 80 MG CAPSULE PO SCH (07:39)
[2020-01-24 08:06] LABS: VBG HCO3 36 mEq/L (21-27); VBG PCO2 64 mmHg (41-51); VBG PH 7.36 pH Units (7.32-7.42); VBG PO2 98 mmHg (25-50)
[2020-01-24 08:23] LABS: Calcium 9.3 mg/dL (8.6-10.3); Magnesium 2.3 mg/dL (1.6-2.6); Potassium 4.2 mEq/L (3.5-5.1)
[2020-01-24 08:24] LABS: Basophils # 0.1 K/mcL (0.0-0.2); Basophils % 0.8 %; Eosinophils # 0.3 K/mcL (0.0-0.6); Eosinophils % 4.1 %; Hematocrit 42.3 % (37.5-50.1); Hemoglobin 12.7 g/dL (12.9-16.9); Immature Granulocytes % 0.7 % (0-4); Lymphocytes # 1.7 K/mcL (0.6-4.6); Lymphocytes % 23.7 %; Mean Corpuscular Hemoglobin 29.6 pg (28.0-33.3); Mean Corpuscular Volume 98.6 fL (83.0-100.0); Mean Platelet Volume 11.1 fL (9.4-12.4); Monocytes % 13.6 %; Platelet Count 147 K/mcL (140-400); Red Blood Count 4.29 M/mcL (4.19-5.50); Red Cell Distribution Width 15.4 % (11.5-14.5); Segmented Neutrophils % 57.1 %; White Blood Count 7.1 K/mcL (4.3-11.1)
[2020-01-24] MEDS: Budesonide/Formoterol 160/4.5 1 PUFF INH IH SCH ×2 (10:41→21:35)
[2020-01-24] MEDS ORDERED: *HR* LORazepam 1 MG TABLET PO PRN (11:31)
[2020-01-24 14:11] LABS: ABG Base Excess 8 mEq/L (-2 to 3); ABG HCO3 38 mEq/L (21-27); ABG Oxygen Saturation 97 % (95-98); ABG PCO2 71 mmHg (35-45); ABG PH 7.33 pH Units (7.32-7.45); ABG PO2 105 mmHg (85-104); ABG TCO2 40 mEq/L (20-26); Blood Gas Modality BiLevel; Blood Gas VT 550 cc
[2020-01-24] MEDS ORDERED: Furosemide 40 MG/4 ML VIAL ONE (14:24)
[2020-01-24] MEDS ORDERED: Perflutren Lipid Microsphere 1.3 ML in 0.9 % Sodium Chloride 8.7 ML IVP PRN (14:27)
[2020-01-24] MEDS: Furosemide 40 MG/4 ML VIAL IVP ONE ×2 (14:29→14:42)
[2020-01-24] MEDS ORDERED: Furosemide 40 MG in 0.9 % Sodium Chloride 50 ML IV SCH (14:30)
[2020-01-24 14:56] LABS: Alanine Aminotransferase 16 Units/L (7-52); Albumin 3.6 g/dL (3.5-5.7); Alkaline Phosphatase 62 Units/L (34-104); Aspartate Amino Transferase 20 Units/L (13-39); BUN/Creatinine Ratio 30 (6-26); Bilirubin,Total 0.4 mg/dL (0.3-1.0); Blood Urea Nitrogen 41 mg/dL (8-23); Calcium 9.1 mg/dL (8.6-10.3); Carbon Dioxide 36 mEq/L (23-29); Chloride 99 mEq/L (98-107); Globulin 3.6 g/dL (2.4-3.5); Glucose 155 mg/dL (70-105); Osmolality,Calculated 299 (280-300); Potassium 4.2 mEq/L (3.5-5.1); Sodium 138 mEq/L (136-145); Total Protein 7.2 g/dL (6.4-8.9); eGFR For African Americans > 60 (> 60); eGFR For Non-African Americans 51 (> 60)
[2020-01-24] MEDS ORDERED: Ipratropium Neb 0.5 MG NEBULIZER IH PRN (14:57)
[2020-01-24] MEDS ORDERED: Lactulose 200 GM, Sodium Chloride IRRigation 700 ML RC ONE (15:02)
[2020-01-24] MEDS: Ipratropium/Albuterol Neb 3 ML IH SCH ×3 (16:08→21:35)
[2020-01-24 16:37] LABS: ABG Base Excess 8 mEq/L (-2 to 3); ABG HCO3 37 mEq/L (21-27); ABG Oxygen Saturation 95 % (95-98); ABG PCO2 69 mmHg (35-45); ABG PH 7.34 pH Units (7.32-7.45); ABG PO2 85 mmHg (85-104); ABG TCO2 39 mEq/L (20-26); Blood Gas Modality avaps; Blood Gas VT 550 cc
[2020-01-24] MEDS ORDERED: *HR* Atropine Sulfate 1 MG/10 ML SYRINGE ONE (19:22)
[2020-01-24] MEDS: Furosemide 40 MG/4 ML VIAL IVP SCH (19:44)
[2020-01-24] MEDS: Famotidine 20 MG TABLET PO SCH (19:49)
[2020-01-25] MEDS ORDERED: *HR* Atropine Sulfate 1 MG/10 ML SYRINGE ONE (00:52)
[2020-01-25] MEDS ORDERED: *HR* Atropine Sulfate 1 MG/10 ML SYRINGE IVP ONE (01:03)
[2020-01-25 01:14] LABS: ABG Base Excess 9 mEq/L (-2 to 3); ABG HCO3 38 mEq/L (21-27); ABG Oxygen Saturation 96 % (95-98); ABG PCO2 70 mmHg (35-45); ABG PH 7.35 pH Units (7.32-7.45); ABG PO2 91 mmHg (85-104); ABG TCO2 40 mEq/L (20-26); Blood Gas Modality AVAPS; Blood Gas VT 550 cc
[2020-01-25] MEDS: Ipratropium/Albuterol Neb 3 ML IH SCH ×4 (03:35→23:30)
[2020-01-25] MEDS: *HR* Heparin 5,000 UNIT/ML VIAL SQ SCH ×3 (05:51→22:12)
[2020-01-25] MEDS ORDERED: *HR* Atropine Sulfate 1 MG/10 ML SYRINGE IVP PRN (06:10)
[2020-01-25 06:15] LABS: Basophils # 0.1 K/mcL (0.0-0.2); Basophils % 0.7 %; Eosinophils # 0.3 K/mcL (0.0-0.6); Eosinophils % 4.2 %; Hematocrit 43.2 % (37.5-50.1); Hemoglobin 13.1 g/dL (12.9-16.9); Immature Granulocytes % 0.7 % (0-4); Lymphocytes # 1.3 K/mcL (0.6-4.6); Lymphocytes % 18.7 %; Mean Corpuscular HGB Conc 30.3 g/dL (31.6-35.5); Mean Corpuscular Hemoglobin 29.9 pg (28.0-33.3); Mean Corpuscular Volume 98.6 fL (83.0-100.0); Monocytes # 0.9 K/mcL (0.0-1.3); Monocytes % 11.8 %; Neutrophils # 4.6 K/mcL (1.6-8.9); Platelet Count 141 K/mcL (140-400); Red Blood Count 4.38 M/mcL (4.19-5.50); Red Cell Distribution Width 15.3 % (11.5-14.5); Segmented Neutrophils % 63.9 %; White Blood Count 7.2 K/mcL (4.3-11.1)
[2020-01-25 06:16] LABS: VBG HCO3 35 mEq/L (21-27); VBG PCO2 57 mmHg (41-51); VBG PO2 189 mmHg (25-50)
[2020-01-25 06:31] LABS: BUN/Creatinine Ratio 29 (6-26); Blood Urea Nitrogen 37 mg/dL (8-23); Carbon Dioxide 34 mEq/L (23-29); Chloride 98 mEq/L (98-107); Glucose 128 mg/dL (70-105); Magnesium 2.3 mg/dL (1.6-2.6); Osmolality,Calculated 298 (280-300); Potassium 3.9 mEq/L (3.5-5.1); Sodium 139 mEq/L (136-145); eGFR For African Americans > 60 (> 60); eGFR For Non-African Americans 54 (> 60)
[2020-01-25] MEDS: Furosemide 40 MG/4 ML VIAL IVP SCH ×2 (09:36→20:15)
[2020-01-25] MEDS: Aspirin 81 MG TAB.CHEW PO SCH (09:36)
[2020-01-25] MEDS: Cholecalciferol (D-3) 1,000 UNIT (25MCG) TABLET PO SCH (09:36)
[2020-01-25] MEDS: Budesonide/Formoterol 160/4.5 1 PUFF INH IH SCH ×2 (10:14→23:30)
[2020-01-25] MEDS: Famotidine 20 MG TABLET PO SCH (20:15)
[2020-01-26] MEDS: Ipratropium/Albuterol Neb 3 ML IH SCH ×4 (03:18→22:01)
[2020-01-26 04:44] LABS: BUN/Creatinine Ratio 35 (6-26); Blood Urea Nitrogen 41 mg/dL (8-23); Calcium 8.6 mg/dL (8.6-10.3); Carbon Dioxide 31 mEq/L (23-29); Chloride 95 mEq/L (98-107); Glucose 164 mg/dL (70-105); Osmolality,Calculated 292 (280-300); Potassium 3.8 mEq/L (3.5-5.1); Sodium 134 mEq/L (136-145); eGFR For African Americans > 60 (> 60); eGFR For Non-African Americans 60 (> 60)
[2020-01-26 04:50] LABS: Basophils # 0.1 K/mcL (0.0-0.2); Basophils % 0.5 %; Eosinophils # 0.3 K/mcL (0.0-0.6); Eosinophils % 3.3 %; Hematocrit 40.9 % (37.5-50.1); Hemoglobin 12.5 g/dL (12.9-16.9); Immature Granulocytes % 0.6 % (0-4); Lymphocytes # 1.9 K/mcL (0.6-4.6); Lymphocytes % 20.3 %; Mean Corpuscular HGB Conc 30.6 g/dL (31.6-35.5); Mean Corpuscular Hemoglobin 29.1 pg (28.0-33.3); Mean Corpuscular Volume 95.1 fL (83.0-100.0); Mean Platelet Volume 11.4 fL (9.4-12.4); Monocytes # 1.1 K/mcL (0.0-1.3); Monocytes % 11.6 %; Neutrophils # 5.9 K/mcL (1.6-8.9); Platelet Count 143 K/mcL (140-400); Segmented Neutrophils % 63.7 %; White Blood Count 9.3 K/mcL (4.3-11.1)
[2020-01-26] MEDS: *HR* Heparin 5,000 UNIT/ML VIAL SQ SCH ×3 (06:05→21:11)
[2020-01-26] MEDS: Cholecalciferol (D-3) 1,000 UNIT (25MCG) TABLET PO SCH (08:38)
[2020-01-26] MEDS: Furosemide 40 MG/4 ML VIAL IVP SCH (08:38)
[2020-01-26] MEDS: Aspirin 81 MG TAB.CHEW PO SCH (08:38)
[2020-01-26] MEDS: Budesonide/Formoterol 160/4.5 1 PUFF INH IH SCH ×2 (10:23→22:02)
[2020-01-26] MEDS: lisinopriL 5 MG TABLET PO SCH (14:59)
[2020-01-26] MEDS ORDERED: *HR* LORazepam 1 MG TABLET PO PRN (17:17)
[2020-01-26] MEDS ORDERED: polyethylene glycoL 3350 17 GM POWD.PACK PO PRN (17:17)
[2020-01-26] MEDS ORDERED: Naloxone 0.4 MG/ML INJ IVP PRN (17:17)
[2020-01-26] MEDS ORDERED: Acetaminophen 325 MG TABLET PO PRN (17:17)
[2020-01-26] MEDS: Famotidine 20 MG TABLET PO SCH (20:05)
[2020-01-26] MEDS: Gabapentin 300 MG CAPSULE PO SCH (20:05)
[2020-01-26] MEDS ORDERED: Furosemide 40 MG/4 ML VIAL IVP SCH (21:00)
[2020-01-27] MEDS: Ipratropium/Albuterol Neb 3 ML IH SCH ×4 (03:28→21:46)
[2020-01-27] MEDS: *HR* Heparin 5,000 UNIT/ML VIAL SQ SCH ×3 (06:10→20:46)
[2020-01-27 07:33] LABS: Basophils # 0.1 K/mcL (0.0-0.2); Basophils % 0.6 %; Eosinophils # 0.2 K/mcL (0.0-0.6); Eosinophils % 2.4 %; Hematocrit 38.9 % (37.5-50.1); Hemoglobin 12.3 g/dL (12.9-16.9); Immature Granulocytes % 0.9 % (0-4); Lymphocytes # 1.8 K/mcL (0.6-4.6); Lymphocytes % 18.3 %; Mean Corpuscular HGB Conc 31.6 g/dL (31.6-35.5); Mean Corpuscular Hemoglobin 29.6 pg (28.0-33.3); Mean Corpuscular Volume 93.5 fL (83.0-100.0); Mean Platelet Volume 11.4 fL (9.4-12.4); Monocytes # 1.2 K/mcL (0.0-1.3); Monocytes % 11.7 %; Neutrophils # 6.5 K/mcL (1.6-8.9); Platelet Count 146 K/mcL (140-400); Red Blood Count 4.16 M/mcL (4.19-5.50); Red Cell Distribution Width 15.3 % (11.5-14.5); Segmented Neutrophils % 66.1 %; White Blood Count 9.8 K/mcL (4.3-11.1)
[2020-01-27 07:50] LABS: Calcium 9.3 mg/dL (8.6-10.3); Magnesium 2.1 mg/dL (1.6-2.6); Potassium 4.1 mEq/L (3.5-5.1)
[2020-01-27] MEDS: Ziprasidone 80 MG CAPSULE PO SCH ×2 (08:08→17:07)
[2020-01-27] MEDS: Gabapentin 300 MG CAPSULE PO SCH ×2 (08:09→20:47)
[2020-01-27] MEDS: Aspirin 81 MG TAB.CHEW PO SCH (08:10)
[2020-01-27] MEDS: Cholecalciferol (D-3) 1,000 UNIT (25MCG) TABLET PO SCH (08:10)
[2020-01-27] MEDS ORDERED: lisinopriL 5 MG TABLET PO SCH (09:00)
[2020-01-27] MEDS: Budesonide/Formoterol 160/4.5 1 PUFF INH IH SCH ×2 (09:37→21:46)
[2020-01-27] MEDS: Famotidine 20 MG TABLET PO SCH (20:46)
[2020-01-27] MEDS: Hydrocortisone Sodium Succ 100 MG/2 ML VIAL IVP SCH (23:40)
[2020-01-28] MEDS ORDERED: 0.9 % Sodium Chloride 500 ML IVC ONE ×2 (00:33→04:56)
[2020-01-28] MEDS ORDERED: 0.9 % Sodium Chloride 500 ML ONE (00:36)
[2020-01-28 03:03] LABS: Basophils # 0.1 K/mcL (0.0-0.2); Basophils % 0.5 %; Eosinophils # 0.1 K/mcL (0.0-0.6); Eosinophils % 1.2 %; Hemoglobin 11.7 g/dL (12.9-16.9); Immature Granulocytes % 1.4 % (0-4); Lymphocytes # 0.7 K/mcL (0.6-4.6); Lymphocytes % 7.4 %; Mean Corpuscular HGB Conc 31.6 g/dL (31.6-35.5); Mean Corpuscular Hemoglobin 29.4 pg (28.0-33.3); Mean Platelet Volume 11.5 fL (9.4-12.4); Monocytes # 0.9 K/mcL (0.0-1.3); Monocytes % 9.1 %; Neutrophils # 7.5 K/mcL (1.6-8.9); Platelet Count 120 K/mcL (140-400); Red Blood Count 3.98 M/mcL (4.19-5.50); Red Cell Distribution Width 15.1 % (11.5-14.5); Segmented Neutrophils % 80.4 %; White Blood Count 9.3 K/mcL (4.3-11.1)
[2020-01-28 03:22] LABS: Calcium 8.9 mg/dL (8.6-10.3); Magnesium 2.1 mg/dL (1.6-2.6); Potassium 4.4 mEq/L (3.5-5.1)
[2020-01-28] MEDS: Ipratropium/Albuterol Neb 3 ML IH SCH ×4 (03:54→22:00)
[2020-01-28] MEDS: *HR* Heparin 5,000 UNIT/ML VIAL SQ SCH ×3 (05:00→20:42)
[2020-01-28] MEDS ORDERED: Albumin 25% 25gram/100mL 25 GM/100 ML IV.SOLN IVPB ONE (05:18)
[2020-01-28] MEDS: Ziprasidone 80 MG CAPSULE PO SCH ×2 (08:10→17:16)
[2020-01-28] MEDS: Hydrocortisone Sodium Succ 100 MG/2 ML VIAL IVP SCH ×3 (08:10→23:25)
[2020-01-28] MEDS: Gabapentin 300 MG CAPSULE PO SCH ×2 (08:10→20:42)
[2020-01-28] MEDS: Aspirin 81 MG TAB.CHEW PO SCH (08:10)
[2020-01-28] MEDS: Cholecalciferol (D-3) 1,000 UNIT (25MCG) TABLET PO SCH (08:10)
[2020-01-28] MEDS ORDERED: 0.9 % Sodium Chloride 1,000 ML IVC SCH (08:45)
[2020-01-28] MEDS: Budesonide/Formoterol 160/4.5 1 PUFF INH IH SCH ×2 (09:56→22:01)
[2020-01-28] MEDS: Famotidine 20 MG TABLET PO SCH (20:41)
[2020-01-29 02:12] LABS: Basophils % 0.2 %; Hematocrit 35.7 % (37.5-50.1); Hemoglobin 11.5 g/dL (12.9-16.9); Immature Granulocytes % 1.3 % (0-4); Lymphocytes # 0.7 K/mcL (0.6-4.6); Lymphocytes % 6.6 %; Mean Corpuscular HGB Conc 32.2 g/dL (31.6-35.5); Mean Corpuscular Hemoglobin 30.3 pg (28.0-33.3); Mean Corpuscular Volume 93.9 fL (83.0-100.0); Mean Platelet Volume 11.8 fL (9.4-12.4); Monocytes # 0.7 K/mcL (0.0-1.3); Monocytes % 6.4 %; Neutrophils # 8.6 K/mcL (1.6-8.9); Platelet Count 126 K/mcL (140-400); Red Cell Distribution Width 15.4 % (11.5-14.5); Segmented Neutrophils % 85.5 %; White Blood Count 10.1 K/mcL (4.3-11.1)
[2020-01-29 02:33] LABS: Calcium 9.3 mg/dL (8.6-10.3); Potassium 4.2 mEq/L (3.5-5.1)
[2020-01-29] MEDS: Ipratropium/Albuterol Neb 3 ML IH SCH ×4 (03:41→21:58)
[2020-01-29] MEDS: *HR* Heparin 5,000 UNIT/ML VIAL SQ SCH ×3 (06:02→21:28)
[2020-01-29] MEDS: Cholecalciferol (D-3) 1,000 UNIT (25MCG) TABLET PO SCH (07:38)
[2020-01-29] MEDS: Aspirin 81 MG TAB.CHEW PO SCH (07:38)
[2020-01-29] MEDS: Gabapentin 300 MG CAPSULE PO SCH ×2 (07:38→21:27)
[2020-01-29] MEDS: Hydrocortisone Sodium Succ 100 MG/2 ML VIAL IVP SCH ×2 (07:39→15:14)
[2020-01-29] MEDS: Ziprasidone 80 MG CAPSULE PO SCH ×2 (07:39→17:28)
[2020-01-29] MEDS: Budesonide/Formoterol 160/4.5 1 PUFF INH IH SCH ×2 (10:16→21:58)
[2020-01-29] MEDS: Famotidine 20 MG TABLET PO SCH (21:27)
[2020-01-30] MEDS: Hydrocortisone Sodium Succ 100 MG/2 ML VIAL IVP SCH ×2 (00:23→07:43)
[2020-01-30] MEDS: Ipratropium/Albuterol Neb 3 ML IH SCH ×3 (04:01→16:20)
[2020-01-30 05:47] LABS: Basophils % 0.4 %; Hematocrit 36.5 % (37.5-50.1); Hemoglobin 11.3 g/dL (12.9-16.9); Immature Granulocytes % 1.9 % (0-4); Lymphocytes # 0.8 K/mcL (0.6-4.6); Lymphocytes % 8.1 %; Mean Corpuscular Hemoglobin 29.4 pg (28.0-33.3); Mean Corpuscular Volume 95.1 fL (83.0-100.0); Monocytes # 0.5 K/mcL (0.0-1.3); Monocytes % 5.4 %; Neutrophils # 8.2 K/mcL (1.6-8.9); Platelet Count 132 K/mcL (140-400); Red Blood Count 3.84 M/mcL (4.19-5.50); Red Cell Distribution Width 15.4 % (11.5-14.5); Segmented Neutrophils % 84.2 %; White Blood Count 9.7 K/mcL (4.3-11.1)
[2020-01-30 05:59] LABS: Calcium 9.3 mg/dL (8.6-10.3); Potassium 4.8 mEq/L (3.5-5.1)
[2020-01-30] MEDS: *HR* Heparin 5,000 UNIT/ML VIAL SQ SCH ×2 (06:02→14:27)
[2020-01-30] MEDS: Cholecalciferol (D-3) 1,000 UNIT (25MCG) TABLET PO SCH (07:43)
[2020-01-30] MEDS: Aspirin 81 MG TAB.CHEW PO SCH (07:43)
[2020-01-30] MEDS: Ziprasidone 80 MG CAPSULE PO SCH (07:43)
[2020-01-30] MEDS: Gabapentin 300 MG CAPSULE PO SCH (07:43)
[2020-01-30] MEDS ORDERED: *HR* Dextrose 50 % in Water (Vial) 50 ML VIAL IVP PRN (10:02)
[2020-01-30] MEDS ORDERED: Dextrose Gel 15 GM/37.5 ML TUBE PO PRN ×2 (10:02)
[2020-01-30] MEDS ORDERED: D5% in Water 1,000 ML IVC PRN (10:02)
[2020-01-30] MEDS: Budesonide/Formoterol 160/4.5 1 PUFF INH IH SCH (10:35)
[2020-01-30 10:54] VITALS: BP 134/79
[2020-01-30] MEDS ORDERED: Insulin LISPRO 300 UNITS/3 ML VIAL SQ SCH ×2 (11:30→21:00)
[2020-01-30 12:31] LABS: Adenovirus Not Detected (Not Detect); Bordetella Pertussis Not Detected (Not Detect); Chlamydophila pneumoniae Not Detected (Not Detect); Coronavirus 229E Not Detected (Not Detect); Coronavirus HKU1 Not Detected (Not Detect); Coronavirus NL63 Not Detected (Not Detect); Coronavirus OC43 Not Detected (Not Detect); Human Metapneumovirus Not Detected (Not Detect); Human Rhinovirus/Enterovirus Not Detected (Not Detect); Influenza A Subtype 2009 H1 Not Detected (Not Detect); Influenza B Not Detected (Not Detect); Mycoplasma pneumoniae Not Detected (Not Detect); Parainfluenza Virus 1 Not Detected (Not Detect); Parainfluenza Virus 2 Not Detected (Not Detect); Parainfluenza Virus 3 Not Detected (Not Detect); Parainfluenza Virus 4 Not Detected (Not Detect); Respiratory Syncytial Virus Not Detected (Not Detect); SARS-CoV-2 Not Detected (Not Detect)
== END 2020-01-30 17:15 | DRG 291 ==
LOC: 3ANU 16:43 → EMEROOARM 16:43 → SUATTDRO 20:03 → 3ANU 21:22 → SUATTDRO 01-18 19:57 → 2NNU 01-24 15:54 → ICNU 01-24 18:40 → 2NNU 01-27 22:19 → 3ANU 01-29 18:59
PROVIDERS: ADMIT Student in an Organized Health Care Education/Training Program; ATTEND Internal Medicine

== ENCOUNTER 2020-02-01 01:02 | Inpatient (IN) ==
[2020-02-01 01:38] LABS: Basophils # 0.1 K/mcL (0.0-0.2); Basophils % 0.8 %; Eosinophils # 0.3 K/mcL (0.0-0.6); Hematocrit 43.6 % (37.5-50.1); Immature Granulocytes % 1.7 % (0-4); Lymphocytes # 1.6 K/mcL (0.6-4.6); Lymphocytes % 15.1 %; Mean Corpuscular HGB Conc 30.5 g/dL (31.6-35.5); Mean Corpuscular Hemoglobin 29.2 pg (28.0-33.3); Mean Corpuscular Volume 95.6 fL (83.0-100.0); Mean Platelet Volume 11.7 fL (9.4-12.4); Monocytes # 0.9 K/mcL (0.0-1.3); Neutrophils # 7.7 K/mcL (1.6-8.9); Platelet Count 179 K/mcL (140-400); Red Blood Count 4.56 M/mcL (4.19-5.50); Red Cell Distribution Width 15.7 % (11.5-14.5); Segmented Neutrophils % 71.4 %; White Blood Count 10.8 K/mcL (4.3-11.1)
[2020-02-01 01:41] LABS: Hemoglobin 13.3 g/dL (12.9-16.9)
[2020-02-01 01:46] LABS: Prothrombin Time 11.8 Seconds (9.4-12.1)
[2020-02-01 01:49] LABS: Activated Partial Thrombo Time 25.6 Seconds (26.0-36.0)
[2020-02-01 02:04] LABS: ABG Base Excess 6 mEq/L (-2 to 3); ABG HCO3 34 mEq/L (21-27); ABG Oxygen Saturation 95 % (95-98); ABG PCO2 58 mmHg (35-45); ABG PH 7.37 pH Units (7.32-7.45); ABG PO2 82 mmHg (85-104); ABG TCO2 36 mEq/L (20-26)
[2020-02-01 02:05] LABS: Alanine Aminotransferase 26 Units/L (7-52); Albumin 3.7 g/dL (3.5-5.7); Alkaline Phosphatase 78 Units/L (34-104); Aspartate Amino Transferase 23 Units/L (13-39); BUN/Creatinine Ratio 36 (6-26); Bilirubin,Total 0.4 mg/dL (0.3-1.0); Blood Urea Nitrogen 49 mg/dL (8-23); Calcium 9.6 mg/dL (8.6-10.3); Carbon Dioxide 30 mEq/L (23-29); Chloride 103 mEq/L (98-107); Ethanol < 10 mg/dL (Less than 10); Globulin 3.6 g/dL (2.4-3.5); Glucose 163 mg/dL (70-105); Osmolality,Calculated 305 (280-300); Potassium 4.4 mEq/L (3.5-5.1); Sodium 139 mEq/L (136-145); Total Protein 7.3 g/dL (6.4-8.9); Troponin I < 0.03 ng/mL (< 0.04); eGFR For African Americans > 60 (> 60); eGFR For Non-African Americans 50 (> 60)
[2020-02-01 02:40] LABS: Bacteria,Urine Few per hpf (None-Few); Bilirubin,Urine Negative (Negative); Blood,Urine Negative (Negative); Budding Yeast,Urine Many per hpf (None Seen); Clarity,Urine Turbid (Clear); Color,Urine Light-Yellow (Yellow); Glucose,Urine (UA) Normal (Normal); Ketones,Urine Negative (Negative); Leukocyte Esterase,Urine Large (Negative); Nitrite,Urine Positive (Negative); Protein,Urine Negative (Neg-Trace); RBC,Urine 0-3 per hpf (0-3); Specific Gravity,Urine 1.015 (1.010-1.025); Urobilinogen,Urine Normal (Normal); WBC,Urine TNTC per hpf (0-3)
[2020-02-01 02:43] LABS: Amphetamine Screen,Urine Negative ng/mL (Cutoff=1000); Barbiturate Screen,Urine Negative ng/mL (Cutoff=200); Benzodiazepines Screen,Urine Negative ng/mL (Cutoff=200); Cannabinoid Screen,Urine Negative ng/mL (Cutoff = 50); Cocaine Screen,Urine Negative ng/mL (Cutoff= 300); Opiate Screen,Urine Negative ng/mL (Cutoff=300); Phencyclidine Screen,Urine Negative ng/mL (Cutoff=25)
[2020-02-01] MEDS ORDERED: cefTRIAXone 1,000 MG in Water for inj. (sterile) 10 ML IVP ONE (02:53)
[2020-02-01] MEDS ORDERED: Naloxone 0.4 MG/ML INJ IVP PRN (05:06)
[2020-02-01 05:10] LABS: Adenovirus Not Detected (Not Detect); Bordetella Pertussis Not Detected (Not Detect); Chlamydophila pneumoniae Not Detected (Not Detect); Coronavirus 229E Not Detected (Not Detect); Coronavirus HKU1 Not Detected (Not Detect); Coronavirus NL63 Not Detected (Not Detect); Coronavirus OC43 Not Detected (Not Detect); Human Metapneumovirus Not Detected (Not Detect); Human Rhinovirus/Enterovirus Not Detected (Not Detect); Influenza A Subtype 2009 H1 Not Detected (Not Detect); Influenza B Not Detected (Not Detect); Mycoplasma pneumoniae Not Detected (Not Detect); Parainfluenza Virus 1 Not Detected (Not Detect); Parainfluenza Virus 2 Not Detected (Not Detect); Parainfluenza Virus 3 Not Detected (Not Detect); Parainfluenza Virus 4 Not Detected (Not Detect); Respiratory Syncytial Virus Not Detected (Not Detect); SARS-CoV-2 Not Detected (Not Detect)
[2020-02-01] MEDS ORDERED: Ipratropium/Albuterol Neb 3 ML IH PRN (05:52)
[2020-02-01] MEDS ORDERED: polyethylene glycoL 3350 17 GM POWD.PACK PO PRN (05:52)
[2020-02-01] MEDS ORDERED: hydrOXYzine pamoate 25 MG CAPSULE PO PRN (05:52)
[2020-02-01] MEDS ORDERED: 0.9 % Sodium Chloride 1,000 ML IVC SCH (06:00)
[2020-02-01] MEDS: *HR* Heparin 5,000 UNIT/ML VIAL SQ SCH ×3 (07:32→21:47)
[2020-02-01] MEDS: Ziprasidone 80 MG CAPSULE PO SCH (08:21)
[2020-02-01] MEDS: Aspirin 81 MG TAB.CHEW PO SCH (08:21)
[2020-02-01] MEDS: Cholecalciferol (D-3) 1,000 UNIT (25MCG) TABLET PO SCH (08:22)
[2020-02-01] MEDS: Gabapentin 300 MG CAPSULE PO SCH ×2 (08:22→21:34)
[2020-02-01] MEDS ORDERED: *HR* LORazepam 1 MG TABLET PO SCH (09:00)
[2020-02-01] MEDS: Budesonide/Formoterol 160/4.5 1 PUFF INH IH SCH ×2 (09:11→20:02)
[2020-02-01 09:13] LABS: ABG Base Excess 7 mEq/L (-2 to 3); ABG HCO3 35 mEq/L (21-27); ABG Oxygen Saturation 96 % (95-98); ABG PCO2 61 mmHg (35-45); ABG PH 7.36 pH Units (7.32-7.45); ABG PO2 88 mmHg (85-104); ABG TCO2 36 mEq/L (20-26)
[2020-02-01] MEDS ORDERED: methylPREDNISolone 125 MG/2 ML VIAL IVP ONE (09:24)
[2020-02-01] MEDS: Ipratropium/Albuterol Neb 3 ML IH SCH ×5 (11:37→23:28)
[2020-02-01] MEDS: Famotidine 20 MG TABLET PO SCH (21:34)
[2020-02-01] MEDS: cefTRIAXone 1,000 MG in Water for inj. (sterile) 10 ML IVP SCH (21:35)
[2020-02-02] MEDS: MethylPREDNISolone 40 MG/ML VIAL IVP SCH ×4 (00:55→21:15)
[2020-02-02] MEDS: Ipratropium/Albuterol Neb 3 ML IH SCH ×6 (03:33→23:13)
[2020-02-02] MEDS: *HR* Heparin 5,000 UNIT/ML VIAL SQ SCH ×3 (05:19→21:17)
[2020-02-02 05:50] LABS: Calcium 9.1 mg/dL (8.6-10.3); Potassium 4.6 mEq/L (3.5-5.1)
[2020-02-02 06:35] LABS: Magnesium 2.3 mg/dL (1.6-2.6); Phosphorous 3.2 mg/dL (2.7-4.5)
[2020-02-02] MEDS: Budesonide/Formoterol 160/4.5 1 PUFF INH IH SCH ×2 (08:21→20:22)
[2020-02-02] MEDS: Aspirin 81 MG TAB.CHEW PO SCH (08:32)
[2020-02-02] MEDS: Cholecalciferol (D-3) 1,000 UNIT (25MCG) TABLET PO SCH (08:32)
[2020-02-02] MEDS: Gabapentin 300 MG CAPSULE PO SCH ×2 (08:32→21:15)
[2020-02-02] MEDS: Famotidine 20 MG TABLET PO SCH (21:15)
[2020-02-02] MEDS: cefTRIAXone 1,000 MG in Water for inj. (sterile) 10 ML IVP SCH (21:16)
[2020-02-03 02:45] LABS: Calcium 8.7 mg/dL (8.6-10.3); Potassium 4.7 mEq/L (3.5-5.1)
[2020-02-03] MEDS: Ipratropium/Albuterol Neb 3 ML IH SCH ×6 (04:09→23:53)
[2020-02-03] MEDS: *HR* Heparin 5,000 UNIT/ML VIAL SQ SCH ×2 (05:17→16:55)
[2020-02-03] MEDS ORDERED: Dextrose Gel 15 GM/37.5 ML TUBE PO PRN ×2 (05:36)
[2020-02-03] MEDS ORDERED: *HR* Dextrose 50 % in Water (Vial) 50 ML VIAL IVP PRN (05:36)
[2020-02-03] MEDS ORDERED: D5% in Water 1,000 ML IVC PRN (05:36)
[2020-02-03] MEDS: Budesonide/Formoterol 160/4.5 1 PUFF INH IH SCH ×2 (07:50→20:03)
[2020-02-03 08:15] LABS: Estimated Average Glucose 200 mg/dl
[2020-02-03] MEDS: Insulin LISPRO 300 UNITS/3 ML VIAL SQ SCH ×4 (08:27→19:58)
[2020-02-03] MEDS: Cholecalciferol (D-3) 1,000 UNIT (25MCG) TABLET PO SCH (08:30)
[2020-02-03] MEDS: Aspirin 81 MG TAB.CHEW PO SCH (08:30)
[2020-02-03] MEDS: predniSONE 20 MG TABLET PO SCH (08:31)
[2020-02-03] MEDS: Ziprasidone 80 MG CAPSULE PO SCH ×2 (08:31→16:54)
[2020-02-03] MEDS: Gabapentin 300 MG CAPSULE PO SCH ×2 (08:31→19:57)
[2020-02-03 08:55] LABS: Basophils % 0.3 %; Immature Granulocytes % 1.9 % (0-4); Lymphocytes # 1.1 K/mcL (0.6-4.6); Lymphocytes % 8.8 %; Mean Corpuscular HGB Conc 31.4 g/dL (31.6-35.5); Mean Corpuscular Hemoglobin 29.8 pg (28.0-33.3); Mean Corpuscular Volume 95.1 fL (83.0-100.0); Mean Platelet Volume 11.6 fL (9.4-12.4); Monocytes # 0.7 K/mcL (0.0-1.3); Monocytes % 5.5 %; Platelet Count 155 K/mcL (140-400); Red Blood Count 3.89 M/mcL (4.19-5.50); Red Cell Distribution Width 15.4 % (11.5-14.5); Segmented Neutrophils % 83.5 %
[2020-02-03 08:57] LABS: Hemoglobin 11.6 g/dL (12.9-16.9)
[2020-02-03] MEDS ORDERED: Furosemide 20 MG TABLET PO SCH (09:00)
[2020-02-03] MEDS ORDERED: lisinopriL 5 MG TABLET PO SCH (09:00)
[2020-02-03 09:08] LABS: Calcium 8.7 mg/dL (8.6-10.3); Potassium 4.6 mEq/L (3.5-5.1)
[2020-02-03] MEDS: Ertapenem 1,000 MG in 0.9 % Sodium Chloride Mini Bag 100 ML IVPB SCH (13:56)
[2020-02-03] MEDS: Famotidine 20 MG TABLET PO SCH (19:57)
[2020-02-04 01:35] LABS: Basophils % 0.3 %; Hematocrit 37.1 % (37.5-50.1); Hemoglobin 11.7 g/dL (12.9-16.9); Immature Granulocytes % 2.2 % (0-4); Lymphocytes # 1.4 K/mcL (0.6-4.6); Lymphocytes % 11.1 %; Mean Corpuscular HGB Conc 31.5 g/dL (31.6-35.5); Mean Corpuscular Hemoglobin 29.8 pg (28.0-33.3); Mean Corpuscular Volume 94.4 fL (83.0-100.0); Mean Platelet Volume 11.5 fL (9.4-12.4); Monocytes # 1.1 K/mcL (0.0-1.3); Monocytes % 8.5 %; Neutrophils # 9.8 K/mcL (1.6-8.9); Platelet Count 150 K/mcL (140-400); Red Blood Count 3.93 M/mcL (4.19-5.50); Red Cell Distribution Width 15.4 % (11.5-14.5); Segmented Neutrophils % 77.9 %; White Blood Count 12.6 K/mcL (4.3-11.1)
[2020-02-04 01:50] LABS: BUN/Creatinine Ratio 36 (6-26); Blood Urea Nitrogen 43 mg/dL (8-23); Calcium 8.7 mg/dL (8.6-10.3); Carbon Dioxide 27 mEq/L (23-29); Chloride 103 mEq/L (98-107); Glucose 212 mg/dL (70-105); Osmolality,Calculated 297 (280-300); Potassium 4.4 mEq/L (3.5-5.1); Sodium 135 mEq/L (136-145); eGFR For African Americans > 60 (> 60); eGFR For Non-African Americans 58 (> 60)
[2020-02-04] MEDS: Ipratropium/Albuterol Neb 3 ML IH SCH ×6 (03:47→23:57)
[2020-02-04] MEDS: *HR* Heparin 5,000 UNIT/ML VIAL SQ SCH ×2 (05:51→17:07)
[2020-02-04] MEDS: Budesonide/Formoterol 160/4.5 1 PUFF INH IH SCH ×2 (08:15→19:42)
[2020-02-04] MEDS: Aspirin 81 MG TAB.CHEW PO SCH (09:03)
[2020-02-04] MEDS: Cholecalciferol (D-3) 1,000 UNIT (25MCG) TABLET PO SCH (09:03)
[2020-02-04] MEDS: predniSONE 20 MG TABLET PO SCH (09:03)
[2020-02-04] MEDS: Ziprasidone 80 MG CAPSULE PO SCH ×2 (09:03→17:08)
[2020-02-04] MEDS: Gabapentin 300 MG CAPSULE PO SCH ×2 (09:03→20:13)
[2020-02-04] MEDS: Insulin LISPRO 300 UNITS/3 ML VIAL SQ SCH ×4 (09:03→20:14)
[2020-02-04] MEDS: Ertapenem 1,000 MG in 0.9 % Sodium Chloride Mini Bag 100 ML IVPB SCH (09:04)
[2020-02-04] MEDS: Famotidine 20 MG TABLET PO SCH (20:13)
[2020-02-05] MEDS: Ipratropium/Albuterol Neb 3 ML IH SCH ×5 (03:37→20:59)
[2020-02-05] MEDS: *HR* Heparin 5,000 UNIT/ML VIAL SQ SCH ×2 (04:55→17:36)
[2020-02-05 06:31] LABS: Monocytes % 7.9 %
[2020-02-05 06:33] LABS: Basophils # 0.1 K/mcL (0.0-0.2); Basophils % 0.6 %; Eosinophils % 0.1 %; Hematocrit 37.3 % (37.5-50.1); Hemoglobin 11.5 g/dL (12.9-16.9); Lymphocytes # 1.5 K/mcL (0.6-4.6); Lymphocytes % 13.1 %; Mean Corpuscular HGB Conc 30.8 g/dL (31.6-35.5); Mean Corpuscular Hemoglobin 29.1 pg (28.0-33.3); Mean Corpuscular Volume 94.4 fL (83.0-100.0); Mean Platelet Volume 11.8 fL (9.4-12.4); Monocytes # 0.9 K/mcL (0.0-1.3); Neutrophils # 8.7 K/mcL (1.6-8.9); Platelet Count 132 K/mcL (140-400); Red Blood Count 3.95 M/mcL (4.19-5.50); Red Cell Distribution Width 15.4 % (11.5-14.5); Segmented Neutrophils % 75.3 %; White Blood Count 11.6 K/mcL (4.3-11.1)
[2020-02-05 06:49] LABS: Calcium 8.7 mg/dL (8.6-10.3); Potassium 4.8 mEq/L (3.5-5.1)
[2020-02-05] MEDS: Budesonide/Formoterol 160/4.5 1 PUFF INH IH SCH ×2 (07:21→20:59)
[2020-02-05] MEDS: Ertapenem 1,000 MG in 0.9 % Sodium Chloride Mini Bag 100 ML IVPB SCH (10:43)
[2020-02-05] MEDS: Gabapentin 300 MG CAPSULE PO SCH ×2 (10:43→20:36)
[2020-02-05] MEDS: Ziprasidone 80 MG CAPSULE PO SCH ×2 (10:43→17:36)
[2020-02-05] MEDS: predniSONE 20 MG TABLET PO SCH (10:43)
[2020-02-05] MEDS: Aspirin 81 MG TAB.CHEW PO SCH (10:43)
[2020-02-05] MEDS: Cholecalciferol (D-3) 1,000 UNIT (25MCG) TABLET PO SCH (10:43)
[2020-02-05] MEDS: Insulin LISPRO 300 UNITS/3 ML VIAL SQ SCH ×5 (11:50→20:35)
[2020-02-05] MEDS ORDERED: Fosfomycin Tromethamine 3 GM Packet PO SCH (12:45)
[2020-02-05] MEDS ORDERED: 0.9 % Sodium Chloride 1,000 ML IVC SCH (15:15)
[2020-02-05] MEDS: Famotidine 20 MG TABLET PO SCH (20:36)
[2020-02-06] MEDS: Ipratropium/Albuterol Neb 3 ML IH SCH ×7 (00:29→23:18)
[2020-02-06] MEDS: *HR* Heparin 5,000 UNIT/ML VIAL SQ SCH ×2 (05:32→17:02)
[2020-02-06 06:23] LABS: Basophils # 0.1 K/mcL (0.0-0.2); Basophils % 0.6 %; Eosinophils # 0.1 K/mcL (0.0-0.6); Eosinophils % 0.5 %; Hematocrit 36.6 % (37.5-50.1); Hemoglobin 11.5 g/dL (12.9-16.9); Immature Granulocytes % 4.1 % (0-4); Lymphocytes # 1.4 K/mcL (0.6-4.6); Lymphocytes % 13.4 %; Mean Corpuscular HGB Conc 31.4 g/dL (31.6-35.5); Mean Corpuscular Hemoglobin 29.7 pg (28.0-33.3); Mean Corpuscular Volume 94.6 fL (83.0-100.0); Mean Platelet Volume 11.2 fL (9.4-12.4); Monocytes # 0.8 K/mcL (0.0-1.3); Monocytes % 7.6 %; Neutrophils # 7.7 K/mcL (1.6-8.9); Platelet Count 136 K/mcL (140-400); Red Blood Count 3.87 M/mcL (4.19-5.50); Red Cell Distribution Width 15.9 % (11.5-14.5); Segmented Neutrophils % 73.8 %; White Blood Count 10.4 K/mcL (4.3-11.1)
[2020-02-06 06:27] LABS: Calcium 8.6 mg/dL (8.6-10.3); Potassium 5.1 mEq/L (3.5-5.1)
[2020-02-06] MEDS: predniSONE 20 MG TABLET PO SCH (08:23)
[2020-02-06] MEDS: Aspirin 81 MG TAB.CHEW PO SCH (08:23)
[2020-02-06] MEDS: Gabapentin 300 MG CAPSULE PO SCH ×2 (08:24→22:18)
[2020-02-06] MEDS: Insulin LISPRO 300 UNITS/3 ML VIAL SQ SCH ×4 (08:24→21:41)
[2020-02-06] MEDS: Cholecalciferol (D-3) 1,000 UNIT (25MCG) TABLET PO SCH (08:24)
[2020-02-06] MEDS: Ziprasidone 80 MG CAPSULE PO SCH ×2 (08:24→17:02)
[2020-02-06] MEDS: Budesonide/Formoterol 160/4.5 1 PUFF INH IH SCH ×2 (11:06→19:42)
[2020-02-06 11:59] LABS: Bilirubin,Urine Negative (Negative); Blood,Urine Negative (Negative); Clarity,Urine Clear (Clear); Color,Urine Colorless (Yellow); Glucose,Urine (UA) Normal (Normal); Ketones,Urine Negative (Negative); Leukocyte Esterase,Urine Negative (Negative); Nitrite,Urine Negative (Negative); Protein,Urine Negative (Neg-Trace); Specific Gravity,Urine 1.009 (1.010-1.025); Urobilinogen,Urine Normal (Normal)
[2020-02-06 12:09] LABS: Creatinine,Urine 17 mg/dL
[2020-02-06 12:33] LABS: Uric Acid 4.4 mg/dL (2.3-7.6)
[2020-02-06 13:11] LABS: Hepatitis B Surface Antigen Nonreactive (Nonreactive)
[2020-02-06 13:40] LABS: Hepatitis C Virus Antibody Nonreactive (Nonreactive)
[2020-02-06 13:41] LABS: Hepatitis B Core IgM Nonreactive (Nonreactive)
[2020-02-06 13:42] LABS: Hepatitis A Antibody IgM Nonreactive (Nonreactive)
[2020-02-06] MEDS: Famotidine 20 MG TABLET PO SCH (22:18)
[2020-02-07] MEDS: Ipratropium/Albuterol Neb 3 ML IH SCH ×4 (03:15→15:44)
[2020-02-07] MEDS: *HR* Heparin 5,000 UNIT/ML VIAL SQ SCH (05:26)
[2020-02-07 06:57] LABS: Basophils # 0.1 K/mcL (0.0-0.2); Basophils % 0.6 %; Eosinophils % 0.1 %; Hematocrit 37.4 % (37.5-50.1); Hemoglobin 11.9 g/dL (12.9-16.9); Immature Granulocytes % 3.9 % (0-4); Lymphocytes # 0.9 K/mcL (0.6-4.6); Lymphocytes % 7.4 %; Mean Corpuscular HGB Conc 31.8 g/dL (31.6-35.5); Mean Corpuscular Hemoglobin 29.8 pg (28.0-33.3); Mean Corpuscular Volume 93.5 fL (83.0-100.0); Mean Platelet Volume 11.5 fL (9.4-12.4); Monocytes # 0.5 K/mcL (0.0-1.3); Platelet Count 149 K/mcL (140-400); Red Cell Distribution Width 15.9 % (11.5-14.5); White Blood Count 11.9 K/mcL (4.3-11.1)
[2020-02-07 07:30] LABS: BUN/Creatinine Ratio 38 (6-26); Blood Urea Nitrogen 44 mg/dL (8-23); Calcium 9.1 mg/dL (8.6-10.3); Carbon Dioxide 25 mEq/L (23-29); Chloride 103 mEq/L (98-107); Glucose 284 mg/dL (70-105); Osmolality,Calculated 301 (280-300); Potassium 4.9 mEq/L (3.5-5.1); Sodium 135 mEq/L (136-145); eGFR For African Americans > 60 (> 60); eGFR For Non-African Americans > 60 (> 60)
[2020-02-07] MEDS: Cholecalciferol (D-3) 1,000 UNIT (25MCG) TABLET PO SCH (08:19)
[2020-02-07] MEDS: Ziprasidone 80 MG CAPSULE PO SCH ×2 (08:20→16:47)
[2020-02-07] MEDS: Gabapentin 300 MG CAPSULE PO SCH (08:20)
[2020-02-07] MEDS: Aspirin 81 MG TAB.CHEW PO SCH (08:20)
[2020-02-07] MEDS: Insulin LISPRO 300 UNITS/3 ML VIAL SQ SCH ×3 (08:21→16:47)
[2020-02-07] MEDS ORDERED: predniSONE 20 MG TABLET PO SCH (09:15)
[2020-02-07] MEDS: Budesonide/Formoterol 160/4.5 1 PUFF INH IH SCH (12:19)
[2020-02-07 15:05] LABS: Adenovirus Not Detected (Not Detect); Bordetella Pertussis Not Detected (Not Detect); Chlamydophila pneumoniae Not Detected (Not Detect); Coronavirus 229E Not Detected (Not Detect); Coronavirus HKU1 Not Detected (Not Detect); Coronavirus NL63 Not Detected (Not Detect); Coronavirus OC43 Not Detected (Not Detect); Human Metapneumovirus Not Detected (Not Detect); Human Rhinovirus/Enterovirus Not Detected (Not Detect); Influenza A Subtype 2009 H1 Not Detected (Not Detect); Influenza B Not Detected (Not Detect); Mycoplasma pneumoniae Not Detected (Not Detect); Parainfluenza Virus 1 Not Detected (Not Detect); Parainfluenza Virus 2 Not Detected (Not Detect); Parainfluenza Virus 3 Not Detected (Not Detect); Parainfluenza Virus 4 Not Detected (Not Detect); Respiratory Syncytial Virus Not Detected (Not Detect); SARS-CoV-2 Not Detected (Not Detect)
[2020-02-07 16:06] VITALS: BP 123/71
== END 2020-02-07 17:21 | DRG 190 ==
LOC: EMEROOARM 01:02 → 3BNU 01:02 → SUATTDRO 05:26 → 3BNU 06:06
PROVIDERS: ADMIT Internal Medicine; ATTEND Internal Medicine

== ENCOUNTER 2020-06-02 15:24 | Observation (INO) ==
[2020-06-02 16:27] LABS: Basophils # 0.1 K/mcL (0.0-0.2); Basophils % 0.9 %; Eosinophils # 0.5 K/mcL (0.0-0.6); Eosinophils % 5.8 %; Hematocrit 37.6 % (37.5-50.1); Hemoglobin 11.2 g/dL (12.9-16.9); Immature Granulocytes % 0.5 % (0-4); Lymphocytes # 1.6 K/mcL (0.6-4.6); Lymphocytes % 19.1 %; Mean Corpuscular HGB Conc 29.8 g/dL (31.6-35.5); Mean Corpuscular Hemoglobin 29.2 pg (28.0-33.3); Mean Corpuscular Volume 97.9 fL (83.0-100.0); Mean Platelet Volume 10.9 fL (9.4-12.4); Monocytes # 0.9 K/mcL (0.0-1.3); Monocytes % 10.7 %; Neutrophils # 5.1 K/mcL (1.6-8.9); Platelet Count 161 K/mcL (140-400); Red Blood Count 3.84 M/mcL (4.19-5.50); Red Cell Distribution Width 15.4 % (11.5-14.5); White Blood Count 8.1 K/mcL (4.3-11.1)
[2020-06-02 16:34] LABS: BUN/Creatinine Ratio 24 (6-26); Blood Urea Nitrogen 23 mg/dL (8-23); Calcium 9.2 mg/dL (8.6-10.3); Carbon Dioxide 37 mEq/L (23-29); Chloride 95 mEq/L (98-107); Glucose 194 mg/dL (70-105); Osmolality,Calculated 293 (280-300); Potassium 4.3 mEq/L (3.5-5.1); Sodium 137 mEq/L (136-145); eGFR For African Americans > 60 (> 60); eGFR For Non-African Americans > 60 (> 60)
[2020-06-02] MEDS ORDERED: Sulfamethoxazole/Trimeth DS 1 EACH TABLET PO ONE (16:50)
[2020-06-02] MEDS ORDERED: Naloxone 0.4 MG/ML INJ IVP PRN (17:27)
[2020-06-02] MEDS ORDERED: Ondansetron 4 MG/2 ML VIAL IVP PRN (17:27)
[2020-06-02] MEDS ORDERED: *HR* HYDROcodone/Acet 5/325 mg TABLET PO PRN (17:27)
[2020-06-02] MEDS ORDERED: Clindamycin 600 MG/50 ML 600 MG/50 ML IV.SOLN IVPB ONE (17:31)
[2020-06-02] MEDS ORDERED: Ipratropium/Albuterol Neb 3 ML IH PRN (17:31)
[2020-06-02 17:53] LABS: C-Reactive Protein 29 mg/L (Less than 10)
[2020-06-02] MEDS ORDERED: Vancomycin 2,000 MG/520 ML IV.SOLN IVPB SCH (19:00)
[2020-06-02] MEDS: Gabapentin 300 MG CAPSULE PO SCH (19:41)
[2020-06-02] MEDS: Aspirin 81 MG TAB.CHEW PO SCH (19:41)
[2020-06-02] MEDS: *HR* LORazepam 1 MG TABLET PO SCH (19:41)
[2020-06-02] MEDS: Furosemide 20 MG/2 ML VIAL IVP SCH (19:58)
[2020-06-02] MEDS ORDERED: Sulfamethoxazole/Trimeth DS 1 EACH TABLET PO SCH (21:00)
[2020-06-03 02:56] LABS: BUN/Creatinine Ratio 21 (6-26); Blood Urea Nitrogen 21 mg/dL (8-23); Calcium 9.1 mg/dL (8.6-10.3); Carbon Dioxide 37 mEq/L (23-29); Chloride 96 mEq/L (98-107); Glucose 145 mg/dL (70-105); Magnesium 2.1 mg/dL (1.6-2.6); Osmolality,Calculated 292 (280-300); Phosphorous 4.2 mg/dL (2.7-4.5); Potassium 5.1 mEq/L (3.5-5.1); Sodium 138 mEq/L (136-145); eGFR For African Americans > 60 (> 60); eGFR For Non-African Americans > 60 (> 60)
[2020-06-03] MEDS: *HR* Enoxaparin 40 MG/0.4 ML SYRINGE SQ SCH (05:56)
[2020-06-03] MEDS: Gabapentin 300 MG CAPSULE PO SCH ×2 (08:58→20:29)
[2020-06-03] MEDS: *HR* LORazepam 1 MG TABLET PO SCH ×2 (08:58→20:29)
[2020-06-03] MEDS: Ziprasidone 80 MG CAPSULE PO SCH ×2 (08:58→18:18)
[2020-06-03] MEDS: levoFLOXacin 750 MG/150 ML 750 MG/150 ML BAG IVPB SCH (08:59)
[2020-06-03] MEDS: Furosemide 20 MG/2 ML VIAL IVP SCH ×2 (08:59→20:29)
[2020-06-03] MEDS ORDERED: Acetaminophen 325 MG TABLET PO PRN (11:52)
[2020-06-03] MEDS ORDERED: polyethylene glycoL 3350 17 GM POWD.PACK PO PRN (11:52)
[2020-06-03] MEDS ORDERED: MOM Conc 10 ML UD.LIQ PO PRN (12:18)
[2020-06-03] MEDS ORDERED: SELENIUM SULFIDE TP PRN (12:21)
[2020-06-03] MEDS ORDERED: Vancomycin 1,500 MG/265 ML IV.SOLN IVPB SCH (19:00)
[2020-06-03] MEDS: Aspirin 81 MG TAB.CHEW PO SCH (20:29)
[2020-06-03] MEDS: Budesonide/Formoterol 160/4.5 1 PUFF INH IH SCH (21:02)
[2020-06-04] MEDS: *HR* Enoxaparin 40 MG/0.4 ML SYRINGE SQ SCH (06:01)
[2020-06-04] MEDS: levoFLOXacin 750 MG/150 ML 750 MG/150 ML BAG IVPB SCH (07:55)
[2020-06-04] MEDS: Ziprasidone 80 MG CAPSULE PO SCH ×2 (07:55→17:34)
[2020-06-04] MEDS: *HR* LORazepam 1 MG TABLET PO SCH ×2 (07:55→20:16)
[2020-06-04] MEDS: Furosemide 20 MG/2 ML VIAL IVP SCH ×2 (07:55→20:26)
[2020-06-04] MEDS: Gabapentin 300 MG CAPSULE PO SCH ×2 (07:55→20:16)
[2020-06-04] MEDS: Budesonide/Formoterol 160/4.5 1 PUFF INH IH SCH ×2 (08:21→21:04)
[2020-06-04] MEDS ORDERED: ZINC SULFATE 50 MG PO SCH (09:00)
[2020-06-04 09:39] LABS: Adenovirus Not Detected (Not Detect); Bordetella Pertussis Not Detected (Not Detect); Chlamydophila pneumoniae Not Detected (Not Detect); Coronavirus 229E Not Detected (Not Detect); Coronavirus HKU1 Not Detected (Not Detect); Coronavirus NL63 Not Detected (Not Detect); Coronavirus OC43 Not Detected (Not Detect); Human Metapneumovirus Not Detected (Not Detect); Human Rhinovirus/Enterovirus Not Detected (Not Detect); Influenza A Subtype 2009 H1 Not Detected (Not Detect); Influenza B Not Detected (Not Detect); Mycoplasma pneumoniae Not Detected (Not Detect); Parainfluenza Virus 1 Not Detected (Not Detect); Parainfluenza Virus 2 Not Detected (Not Detect); Parainfluenza Virus 3 Not Detected (Not Detect); Parainfluenza Virus 4 Not Detected (Not Detect); Respiratory Syncytial Virus Not Detected (Not Detect); SARS-CoV-2 Not Detected (Not Detect)
[2020-06-04] MEDS: Aspirin 81 MG TAB.CHEW PO SCH (20:16)
[2020-06-05] MEDS: *HR* Enoxaparin 40 MG/0.4 ML SYRINGE SQ SCH (05:44)
[2020-06-05 07:14] VITALS: BP 148/74
[2020-06-05] MEDS: Ziprasidone 80 MG CAPSULE PO SCH (07:48)
[2020-06-05] MEDS: Gabapentin 300 MG CAPSULE PO SCH (07:48)
[2020-06-05] MEDS: Furosemide 20 MG/2 ML VIAL IVP SCH (07:48)
[2020-06-05] MEDS: *HR* LORazepam 1 MG TABLET PO SCH (07:48)
[2020-06-05] MEDS: levoFLOXacin 750 MG/150 ML 750 MG/150 ML BAG IVPB SCH (07:49)
== END 2020-06-05 09:36 ==
LOC: 3ANU 15:24 → EMEROOARM 15:24 → SUATTDRO 17:59 → 3ANU 18:24
PROVIDERS: ADMIT Internal Medicine; ATTEND Family Medicine

== ENCOUNTER 2020-06-11 04:11 | Inpatient (IN) ==
[2020-06-11] MEDS ORDERED: 0.9 % Sodium Chloride 1,000 ML IVC ONE (04:19)
[2020-06-11] MEDS ORDERED: Ipratropium/Albuterol Neb 3 ML IH ONE (04:19)
[2020-06-11] MEDS ORDERED: methylPREDNISolone 125 MG/2 ML VIAL IVP ONE (04:19)
[2020-06-11] MEDS ORDERED: Albuterol 2.5 MG/3 ML NEBULIZER IH ONE (04:19)
[2020-06-11 05:05] LABS: Alanine Aminotransferase 11 Units/L (7-52); Albumin 3.2 g/dL (3.5-5.7); Albumin/Globulin Ratio 0.8 (1.1-2.2); Alkaline Phosphatase 62 Units/L (34-104); Aspartate Amino Transferase 12 Units/L (13-39); BUN/Creatinine Ratio 23 (6-26); Bilirubin,Direct 0.1 mg/dL (0.0-0.2); Bilirubin,Indirect 0.4 mg/dL (0.0-1.0); Bilirubin,Total 0.5 mg/dL (0.3-1.0); Blood Urea Nitrogen 26 mg/dL (8-23); Calcium 8.8 mg/dL (8.6-10.3); Carbon Dioxide 36 mEq/L (23-29); Chloride 95 mEq/L (98-107); Globulin 3.8 g/dL (2.4-3.5); Glucose 183 mg/dL (70-105); Osmolality,Calculated 291 (280-300); Potassium 4.7 mEq/L (3.5-5.1); Sodium 136 mEq/L (136-145); eGFR For African Americans > 60 (> 60); eGFR For Non-African Americans > 60 (> 60)
[2020-06-11 05:06] LABS: Basophils # 0.1 K/mcL (0.0-0.2); Basophils % 0.4 %; Eosinophils # 0.1 K/mcL (0.0-0.6); Eosinophils % 0.4 %; Hematocrit 38.6 % (37.5-50.1); Hemoglobin 11.6 g/dL (12.9-16.9); Immature Granulocytes % 0.8 % (0-4); Lymphocytes # 1.6 K/mcL (0.6-4.6); Lymphocytes % 9.7 %; Mean Corpuscular HGB Conc 30.1 g/dL (31.6-35.5); Mean Corpuscular Hemoglobin 28.9 pg (28.0-33.3); Mean Platelet Volume 11.3 fL (9.4-12.4); Monocytes # 0.8 K/mcL (0.0-1.3); Monocytes % 5.1 %; Neutrophils # 13.8 K/mcL (1.6-8.9); Platelet Count 166 K/mcL (140-400); Red Blood Count 4.02 M/mcL (4.19-5.50); Red Cell Distribution Width 15.2 % (11.5-14.5); Segmented Neutrophils % 83.6 %; Troponin I < 0.03 ng/mL (< 0.04); White Blood Count 16.5 K/mcL (4.3-11.1)
[2020-06-11 05:14] LABS: INR 1.2
[2020-06-11] MEDS ORDERED: Isovue-370 500 ML BOTTLE IVP ONE (05:23)
[2020-06-11] MEDS ORDERED: Cefepime HCl 1,000 MG in Water for inj. (sterile) 10 ML IVP ONE (05:46)
[2020-06-11] MEDS ORDERED: Furosemide 40 MG in 0.9 % Sodium Chloride 50 ML IV ONE (05:48)
[2020-06-11] MEDS ORDERED: Cefepime HCl 1,000 MG in 0.9 % Sodium Chloride Mini Bag 100 ML IVPB ONE (07:31)
[2020-06-11] MEDS ORDERED: [UNRECOGNIZED DRUG - OTHER] TP PRN (07:41)
[2020-06-11] MEDS ORDERED: MINERAL OIL TP PRN (07:41)
[2020-06-11] MEDS ORDERED: PETROLATUM TP PRN (07:41)
[2020-06-11] MEDS ORDERED: polyethylene glycoL 3350 17 GM POWD.PACK PO PRN (07:41)
[2020-06-11] MEDS ORDERED: Acetaminophen 325 MG TABLET PO PRN (07:49)
[2020-06-11] MEDS ORDERED: Melatonin 3 MG TABLET PO PRN (07:49)
[2020-06-11] MEDS ORDERED: Ondansetron 4 MG/2 ML VIAL IVP PRN (07:49)
[2020-06-11] MEDS ORDERED: D5% in Water 1,000 ML IVC PRN (07:51)
[2020-06-11] MEDS ORDERED: Dextrose Gel 15 GM/37.5 ML TUBE PO PRN ×2 (07:51)
[2020-06-11] MEDS ORDERED: *HR* Dextrose 50 % in Water (Vial) 50 ML VIAL IVP PRN (07:51)
[2020-06-11] MEDS: Budesonide/Formoterol 160/4.5 1 PUFF INH IH SCH ×2 (08:11→19:21)
[2020-06-11] MEDS: Ipratropium/Albuterol Neb 3 ML IH SCH ×5 (08:11→23:28)
[2020-06-11 09:05] LABS: Bilirubin,Urine Negative (Negative); Blood,Urine Negative (Negative); Clarity,Urine Clear (Clear); Color,Urine Colorless (Yellow); Glucose,Urine (UA) Normal (Normal); Ketones,Urine Negative (Negative); Leukocyte Esterase,Urine Negative (Negative); Nitrite,Urine Negative (Negative); Protein,Urine Negative (Neg-Trace); Specific Gravity,Urine 1.016 (1.010-1.025); Urobilinogen,Urine Normal (Normal)
[2020-06-11] MEDS: *HR* LORazepam 1 MG TABLET PO SCH ×2 (10:08→20:21)
[2020-06-11] MEDS: Gabapentin 300 MG CAPSULE PO SCH ×2 (10:09→20:21)
[2020-06-11] MEDS: Furosemide 20 MG TABLET PO SCH (10:09)
[2020-06-11] MEDS: Ziprasidone 80 MG CAPSULE PO SCH ×2 (10:09→16:58)
[2020-06-11] MEDS: Azithromycin 250 MG TABLET PO SCH (10:09)
[2020-06-11] MEDS: Insulin LISPRO 300 UNITS/3 ML VIAL SUBQ SCH ×3 (11:56→20:21)
[2020-06-11 14:17] LABS: Adenovirus Not Detected (Not Detect); Bordetella Pertussis Not Detected (Not Detect); Chlamydophila pneumoniae Not Detected (Not Detect); Coronavirus 229E Not Detected (Not Detect); Coronavirus HKU1 Not Detected (Not Detect); Coronavirus NL63 Not Detected (Not Detect); Coronavirus OC43 Not Detected (Not Detect); Human Metapneumovirus Not Detected (Not Detect); Human Rhinovirus/Enterovirus Not Detected (Not Detect); Influenza A Subtype 2009 H1 Not Detected (Not Detect); Influenza B Not Detected (Not Detect); Mycoplasma pneumoniae Not Detected (Not Detect); Parainfluenza Virus 1 Not Detected (Not Detect); Parainfluenza Virus 2 Not Detected (Not Detect); Parainfluenza Virus 3 Not Detected (Not Detect); Parainfluenza Virus 4 Not Detected (Not Detect); Respiratory Syncytial Virus Not Detected (Not Detect); SARS-CoV-2 Not Detected (Not Detect)
[2020-06-11] MEDS: Cefepime HCl 2,000 MG in 0.9 % Sodium Chloride Mini Bag 100 ML IVPB SCH ×2 (16:57→23:49)
[2020-06-11] MEDS: Aspirin 81 MG TAB.CHEW PO SCH (20:21)
[2020-06-12] MEDS: Ipratropium/Albuterol Neb 3 ML IH SCH (03:49)
[2020-06-12] MEDS: *HR* Enoxaparin 40 MG/0.4 ML SYRINGE SQ SCH (05:03)
[2020-06-12 05:59] LABS: Hematocrit 34.9 % (37.5-50.1); Hemoglobin 10.5 g/dL (12.9-16.9); Mean Corpuscular HGB Conc 30.1 g/dL (31.6-35.5); Mean Corpuscular Hemoglobin 29.1 pg (28.0-33.3); Mean Corpuscular Volume 96.7 fL (83.0-100.0); Mean Platelet Volume 12.4 fL (9.4-12.4); Platelet Count 137 K/mcL (140-400); Red Blood Count 3.61 M/mcL (4.19-5.50); Red Cell Distribution Width 15.5 % (11.5-14.5); White Blood Count 14.9 K/mcL (4.3-11.1)
[2020-06-12 06:18] LABS: BUN/Creatinine Ratio 34 (6-26); Blood Urea Nitrogen 39 mg/dL (8-23); Calcium 8.9 mg/dL (8.6-10.3); Carbon Dioxide 34 mEq/L (23-29); Chloride 99 mEq/L (98-107); Glucose 193 mg/dL (70-105); Magnesium 2.5 mg/dL (1.6-2.6); Osmolality,Calculated 301 (280-300); Potassium 4.8 mEq/L (3.5-5.1); Sodium 138 mEq/L (136-145); eGFR For African Americans > 60 (> 60); eGFR For Non-African Americans > 60 (> 60)
[2020-06-12] MEDS: Ipratropium/Albuterol Neb 3 ML IH PRN ×2 (07:13→11:04)
[2020-06-12] MEDS: Budesonide/Formoterol 160/4.5 1 PUFF INH IH SCH ×2 (07:14→19:29)
[2020-06-12] MEDS: Insulin LISPRO 300 UNITS/3 ML VIAL SUBQ SCH ×4 (08:30→22:40)
[2020-06-12] MEDS: predniSONE 20 MG TABLET PO SCH (08:31)
[2020-06-12] MEDS: *HR* LORazepam 1 MG TABLET PO SCH ×2 (08:31→22:40)
[2020-06-12] MEDS: Azithromycin 250 MG TABLET PO SCH (08:31)
[2020-06-12] MEDS: Gabapentin 300 MG CAPSULE PO SCH ×2 (08:31→22:40)
[2020-06-12] MEDS: Ziprasidone 80 MG CAPSULE PO SCH ×2 (08:31→17:03)
[2020-06-12] MEDS: Furosemide 20 MG TABLET PO SCH (08:31)
[2020-06-12] MEDS: Cefepime HCl 2,000 MG in 0.9 % Sodium Chloride Mini Bag 100 ML IVPB SCH ×2 (08:31→17:09)
[2020-06-12] MEDS ORDERED: Eucerin Cream 57 GM TUBE TP PRN (10:45)
[2020-06-12] MEDS ORDERED: MOM Conc 10 ML UD.LIQ PO PRN (12:16)
[2020-06-12] MEDS: Vancomycin 2,000 MG/520 ML IV.SOLN IVPB SCH (12:46)
[2020-06-12] MEDS: Aspirin 81 MG TAB.CHEW PO SCH (22:40)
[2020-06-13] MEDS: Cefepime HCl 2,000 MG in 0.9 % Sodium Chloride Mini Bag 100 ML IVPB SCH ×3 (01:16→16:32)
[2020-06-13 04:47] LABS: Basophils % 0.1 %; Eosinophils % 0.1 %; Hematocrit 34.1 % (37.5-50.1); Hemoglobin 10.3 g/dL (12.9-16.9); Immature Granulocytes % 0.8 % (0-4); Lymphocytes # 1.7 K/mcL (0.6-4.6); Lymphocytes % 12.4 %; Mean Corpuscular HGB Conc 30.2 g/dL (31.6-35.5); Mean Corpuscular Hemoglobin 29.7 pg (28.0-33.3); Mean Corpuscular Volume 98.3 fL (83.0-100.0); Mean Platelet Volume 11.2 fL (9.4-12.4); Monocytes # 1.1 K/mcL (0.0-1.3); Monocytes % 7.9 %; Neutrophils # 10.5 K/mcL (1.6-8.9); Platelet Count 160 K/mcL (140-400); Red Blood Count 3.47 M/mcL (4.19-5.50); Red Cell Distribution Width 15.6 % (11.5-14.5); Segmented Neutrophils % 78.7 %; White Blood Count 13.4 K/mcL (4.3-11.1)
[2020-06-13] MEDS: *HR* Enoxaparin 40 MG/0.4 ML SYRINGE SQ SCH (05:00)
[2020-06-13 05:04] LABS: BUN/Creatinine Ratio 43 (6-26); Blood Urea Nitrogen 40 mg/dL (8-23); Calcium 8.2 mg/dL (8.6-10.3); Carbon Dioxide 35 mEq/L (23-29); Chloride 100 mEq/L (98-107); Glucose 135 mg/dL (70-105); Osmolality,Calculated 302 (280-300); Potassium 4.6 mEq/L (3.5-5.1); Sodium 140 mEq/L (136-145); eGFR For African Americans > 60 (> 60); eGFR For Non-African Americans > 60 (> 60)
[2020-06-13] MEDS: Budesonide/Formoterol 160/4.5 1 PUFF INH IH SCH ×2 (07:31→20:36)
[2020-06-13] MEDS: Insulin LISPRO 300 UNITS/3 ML VIAL SUBQ SCH ×4 (08:50→20:11)
[2020-06-13] MEDS: Cholecalciferol (D-3) 1,000 UNIT (25MCG) TABLET PO SCH (10:01)
[2020-06-13] MEDS: Gabapentin 300 MG CAPSULE PO SCH ×2 (10:01→20:08)
[2020-06-13] MEDS: Ascorbic Acid 500 MG TABLET PO SCH (10:01)
[2020-06-13] MEDS: *HR* LORazepam 1 MG TABLET PO SCH ×2 (10:01→20:09)
[2020-06-13] MEDS: Ziprasidone 80 MG CAPSULE PO SCH ×2 (10:01→16:32)
[2020-06-13] MEDS: Zinc Sulfate 220 MG CAPSULE PO SCH (10:01)
[2020-06-13] MEDS: Furosemide 20 MG TABLET PO SCH (10:01)
[2020-06-13] MEDS: predniSONE 20 MG TABLET PO SCH (10:01)
[2020-06-13] MEDS: Vancomycin 2,000 MG/520 ML IV.SOLN IVPB SCH (12:02)
[2020-06-13] MEDS: Aspirin 81 MG TAB.CHEW PO SCH (20:11)
[2020-06-14] MEDS: Cefepime HCl 2,000 MG in 0.9 % Sodium Chloride Mini Bag 100 ML IVPB SCH ×4 (00:42→23:14)
[2020-06-14] MEDS: *HR* Enoxaparin 40 MG/0.4 ML SYRINGE SQ SCH (05:37)
[2020-06-14 06:45] LABS: Basophils % 0.4 %; Eosinophils % 0.3 %; Hematocrit 35.7 % (37.5-50.1); Hemoglobin 10.6 g/dL (12.9-16.9); Immature Granulocytes % 1.1 % (0-4); Lymphocytes % 19.1 %; Mean Corpuscular HGB Conc 29.7 g/dL (31.6-35.5); Mean Corpuscular Hemoglobin 29.1 pg (28.0-33.3); Mean Corpuscular Volume 98.1 fL (83.0-100.0); Mean Platelet Volume 10.9 fL (9.4-12.4); Monocytes % 9.6 %; Neutrophils # 7.2 K/mcL (1.6-8.9); Platelet Count 151 K/mcL (140-400); Red Blood Count 3.64 M/mcL (4.19-5.50); Red Cell Distribution Width 15.4 % (11.5-14.5); Segmented Neutrophils % 69.5 %; White Blood Count 10.4 K/mcL (4.3-11.1)
[2020-06-14] MEDS: Budesonide/Formoterol 160/4.5 1 PUFF INH IH SCH ×2 (07:05→20:10)
[2020-06-14] MEDS: Insulin LISPRO 300 UNITS/3 ML VIAL SUBQ SCH ×4 (07:28→19:31)
[2020-06-14 08:55] LABS: BUN/Creatinine Ratio 45 (6-26); Blood Urea Nitrogen 39 mg/dL (8-23); Calcium 8.6 mg/dL (8.6-10.3); Carbon Dioxide 28 mEq/L (23-29); Chloride 103 mEq/L (98-107); Glucose 130 mg/dL (70-105); Osmolality,Calculated 301 (280-300); Potassium 5.1 mEq/L (3.5-5.1); Sodium 140 mEq/L (136-145); eGFR For African Americans > 60 (> 60); eGFR For Non-African Americans > 60 (> 60)
[2020-06-14] MEDS: Ziprasidone 80 MG CAPSULE PO SCH ×2 (09:15→16:39)
[2020-06-14] MEDS: Cholecalciferol (D-3) 1,000 UNIT (25MCG) TABLET PO SCH (09:15)
[2020-06-14] MEDS: predniSONE 20 MG TABLET PO SCH (09:15)
[2020-06-14] MEDS: *HR* LORazepam 1 MG TABLET PO SCH ×2 (09:16→21:34)
[2020-06-14] MEDS: Ascorbic Acid 500 MG TABLET PO SCH (09:16)
[2020-06-14] MEDS: Zinc Sulfate 220 MG CAPSULE PO SCH (09:17)
[2020-06-14] MEDS: Furosemide 20 MG TABLET PO SCH (09:17)
[2020-06-14] MEDS: Gabapentin 300 MG CAPSULE PO SCH ×2 (09:28→21:34)
[2020-06-14] MEDS: Vancomycin 2,000 MG/520 ML IV.SOLN IVPB SCH (14:26)
[2020-06-14] MEDS: Vancomycin 1,250 MG/262.5 ML IV.SOLN IVPB SCH ×2 (14:48→15:09)
[2020-06-14] MEDS: Aspirin 81 MG TAB.CHEW PO SCH (21:34)
[2020-06-14] MEDS: Doxycycline 100 MG CAPSULE PO SCH (21:34)
[2020-06-15] MEDS: *HR* Enoxaparin 40 MG/0.4 ML SYRINGE SQ SCH (05:05)
[2020-06-15] MEDS: Cefepime HCl 2,000 MG in 0.9 % Sodium Chloride Mini Bag 100 ML IVPB SCH ×2 (08:23→17:13)
[2020-06-15] MEDS: Furosemide 20 MG TABLET PO SCH (08:24)
[2020-06-15] MEDS: Gabapentin 300 MG CAPSULE PO SCH ×2 (08:24→21:53)
[2020-06-15] MEDS: Ascorbic Acid 500 MG TABLET PO SCH (08:24)
[2020-06-15] MEDS: *HR* LORazepam 1 MG TABLET PO SCH ×2 (08:24→21:53)
[2020-06-15] MEDS: predniSONE 20 MG TABLET PO SCH (08:24)
[2020-06-15] MEDS: Ziprasidone 80 MG CAPSULE PO SCH ×2 (08:24→17:13)
[2020-06-15] MEDS: Doxycycline 100 MG CAPSULE PO SCH ×2 (08:24→21:53)
[2020-06-15] MEDS: Cholecalciferol (D-3) 1,000 UNIT (25MCG) TABLET PO SCH (08:25)
[2020-06-15] MEDS: Insulin LISPRO 300 UNITS/3 ML VIAL SUBQ SCH ×4 (08:25→21:54)
[2020-06-15] MEDS: Budesonide/Formoterol 160/4.5 1 PUFF INH IH SCH ×2 (08:25→20:33)
[2020-06-15] MEDS: Zinc Sulfate 220 MG CAPSULE PO SCH (08:25)
[2020-06-15] MEDS: Aspirin 81 MG TAB.CHEW PO SCH (21:53)
[2020-06-16] MEDS: Cefepime HCl 2,000 MG in 0.9 % Sodium Chloride Mini Bag 100 ML IVPB SCH ×3 (01:00→16:41)
[2020-06-16] MEDS: *HR* Enoxaparin 40 MG/0.4 ML SYRINGE SQ SCH (05:07)
[2020-06-16] MEDS: Insulin LISPRO 300 UNITS/3 ML VIAL SUBQ SCH ×4 (07:20→20:51)
[2020-06-16] MEDS: Furosemide 20 MG TABLET PO SCH (07:28)
[2020-06-16] MEDS: Ascorbic Acid 500 MG TABLET PO SCH (07:28)
[2020-06-16] MEDS: Gabapentin 300 MG CAPSULE PO SCH ×2 (07:28→20:50)
[2020-06-16] MEDS: Ziprasidone 80 MG CAPSULE PO SCH ×2 (07:28→16:41)
[2020-06-16] MEDS: *HR* LORazepam 1 MG TABLET PO SCH ×2 (07:28→20:50)
[2020-06-16] MEDS: Doxycycline 100 MG CAPSULE PO SCH ×2 (07:28→20:50)
[2020-06-16] MEDS: Cholecalciferol (D-3) 1,000 UNIT (25MCG) TABLET PO SCH (07:29)
[2020-06-16] MEDS: predniSONE 20 MG TABLET PO SCH (07:29)
[2020-06-16] MEDS: Zinc Sulfate 220 MG CAPSULE PO SCH (07:29)
[2020-06-16] MEDS: Budesonide/Formoterol 160/4.5 1 PUFF INH IH SCH ×2 (10:46→20:18)
[2020-06-16] MEDS: Aspirin 81 MG TAB.CHEW PO SCH (20:50)
[2020-06-17] MEDS: Cefepime HCl 2,000 MG in 0.9 % Sodium Chloride Mini Bag 100 ML IVPB SCH ×2 (00:19→08:05)
[2020-06-17] MEDS: *HR* Enoxaparin 40 MG/0.4 ML SYRINGE SQ SCH (05:48)
[2020-06-17] MEDS: Ziprasidone 80 MG CAPSULE PO SCH (08:04)
[2020-06-17] MEDS: Ascorbic Acid 500 MG TABLET PO SCH (08:04)
[2020-06-17] MEDS: predniSONE 20 MG TABLET PO SCH (08:04)
[2020-06-17] MEDS: Gabapentin 300 MG CAPSULE PO SCH (08:04)
[2020-06-17] MEDS: Zinc Sulfate 220 MG CAPSULE PO SCH (08:04)
[2020-06-17] MEDS: Cholecalciferol (D-3) 1,000 UNIT (25MCG) TABLET PO SCH (08:05)
[2020-06-17] MEDS: *HR* LORazepam 1 MG TABLET PO SCH (08:05)
[2020-06-17] MEDS: Doxycycline 100 MG CAPSULE PO SCH (08:05)
[2020-06-17] MEDS: Furosemide 20 MG TABLET PO SCH (08:05)
[2020-06-17] MEDS: Insulin LISPRO 300 UNITS/3 ML VIAL SUBQ SCH ×3 (08:09→14:30)
[2020-06-17] MEDS: Budesonide/Formoterol 160/4.5 1 PUFF INH IH SCH (10:36)
[2020-06-17 12:43] LABS: Adenovirus Not Detected (Not Detect); Coronavirus 229E Not Detected (Not Detect); Coronavirus HKU1 Not Detected (Not Detect); Coronavirus NL63 Not Detected (Not Detect); Coronavirus OC43 Not Detected (Not Detect)
[2020-06-17 12:44] LABS: Bordetella Pertussis Not Detected (Not Detect); Chlamydophila pneumoniae Not Detected (Not Detect); Human Metapneumovirus Not Detected (Not Detect); Human Rhinovirus/Enterovirus Not Detected (Not Detect); Influenza A Subtype 2009 H1 Not Detected (Not Detect); Influenza B Not Detected (Not Detect); Mycoplasma pneumoniae Not Detected (Not Detect); Parainfluenza Virus 1 Not Detected (Not Detect); Parainfluenza Virus 2 Not Detected (Not Detect); Parainfluenza Virus 3 Not Detected (Not Detect); Parainfluenza Virus 4 Not Detected (Not Detect); Respiratory Syncytial Virus Not Detected (Not Detect); SARS-CoV-2 Not Detected (Not Detect)
[2020-06-17 13:30] VITALS: BP 138/81
== END 2020-06-17 15:06 | DRG 871 ==
LOC: EMEROOARM 04:11 → 2NENU 04:11 → SUATTDRO 06:37 → 2NENU 07:59 → SUATTDRO 08:11 → 3ANU 06-16 17:56
PROVIDERS: ADMIT Internal Medicine; ATTEND Internal Medicine

== ENCOUNTER 2020-06-18 06:17 | Inpatient (IN) ==
[2020-06-18 07:03] LABS: ABG Base Excess 8 mEq/L (-2 to 3); ABG HCO3 37 mEq/L (21-27); ABG Oxygen Saturation 94 % (95-98); ABG PCO2 71 mmHg (35-45); ABG PH 7.32 pH Units (7.32-7.45); ABG PO2 79 mmHg (85-104); ABG TCO2 39 mEq/L (20-26)
[2020-06-18 07:23] LABS: Basophils # 0.1 K/mcL (0.0-0.2); Basophils % 0.4 %; Eosinophils # 0.2 K/mcL (0.0-0.6); Eosinophils % 1.2 %; Hematocrit 41.7 % (37.5-50.1); Immature Granulocytes % 2.5 % (0-4); Lymphocytes % 15.9 %; Mean Corpuscular HGB Conc 29.7 g/dL (31.6-35.5); Mean Corpuscular Hemoglobin 28.5 pg (28.0-33.3); Mean Corpuscular Volume 95.9 fL (83.0-100.0); Mean Platelet Volume 10.7 fL (9.4-12.4); Monocytes % 7.9 %; Neutrophils # 8.9 K/mcL (1.6-8.9); Platelet Count 168 K/mcL (140-400); Red Blood Count 4.35 M/mcL (4.19-5.50); Red Cell Distribution Width 15.7 % (11.5-14.5); Segmented Neutrophils % 72.1 %; White Blood Count 12.3 K/mcL (4.3-11.1)
[2020-06-18 07:24] LABS: Hemoglobin 12.4 g/dL (12.9-16.9)
[2020-06-18 07:45] LABS: BUN/Creatinine Ratio 37 (6-26); Blood Urea Nitrogen 41 mg/dL (8-23); Calcium 9.4 mg/dL (8.6-10.3); Carbon Dioxide 35 mEq/L (23-29); Chloride 99 mEq/L (98-107); Glucose 146 mg/dL (70-105); Osmolality,Calculated 305 (280-300); Potassium 3.8 mEq/L (3.5-5.1); Sodium 141 mEq/L (136-145); Troponin I < 0.03 ng/mL (< 0.04); eGFR For African Americans > 60 (> 60); eGFR For Non-African Americans > 60 (> 60)
[2020-06-18 09:40] LABS: Bilirubin,Urine Negative (Negative); Blood,Urine Negative (Negative); Clarity,Urine Clear (Clear); Color,Urine Light-Yellow (Yellow); Glucose,Urine (UA) Normal (Normal); Hyaline Casts,Urine Few per lpf (None Seen); Ketones,Urine Negative (Negative); Leukocyte Esterase,Urine Negative (Negative); Mucus,Urine Few per lpf (None-Few); Nitrite,Urine Negative (Negative); PH,Urine 5.5 pH Units (5.0-8.0); Protein,Urine 30 mg/dL (Neg-Trace); RBC,Urine 0-3 per hpf (0-3); Specific Gravity,Urine 1.022 (1.010-1.025); Urobilinogen,Urine Normal (Normal); WBC,Urine 0-3 per hpf (0-3)
[2020-06-18] MEDS ORDERED: Acetaminophen 325 MG TABLET PO PRN (13:16)
[2020-06-18] MEDS ORDERED: Ondansetron 4 MG/2 ML VIAL IVP PRN (13:16)
[2020-06-18] MEDS ORDERED: Melatonin 3 MG TABLET PO PRN (13:16)
[2020-06-18] MEDS ORDERED: Naloxone 0.4 MG/ML INJ IVP PRN (13:16)
[2020-06-18 14:44] LABS: VBG HCO3 35 mEq/L (21-27); VBG PCO2 52 mmHg (41-51); VBG PH 7.44 pH Units (7.32-7.42); VBG PO2 238 mmHg (25-50)
[2020-06-18] MEDS ORDERED: *HR* Dextrose 50 % in Water (Vial) 50 ML VIAL IVP PRN (14:48)
[2020-06-18] MEDS ORDERED: Dextrose Gel 15 GM/37.5 ML TUBE PO PRN ×2 (14:48)
[2020-06-18] MEDS ORDERED: D5% in Water 1,000 ML IVC PRN (14:48)
[2020-06-18] MEDS ORDERED: polyethylene glycoL 3350 17 GM POWD.PACK PO PRN (15:26)
[2020-06-18] MEDS: Insulin LISPRO 300 UNITS/3 ML VIAL SUBQ SCH (16:37)
[2020-06-18] MEDS: *HR* Heparin 5,000 UNIT/ML VIAL SQ SCH (18:00)
[2020-06-18] MEDS: Ziprasidone 80 MG CAPSULE PO SCH (18:01)
[2020-06-18] MEDS: Artificial Tears SOLN 15 ML BOTTLE BOTH EYES SCH (20:00)
[2020-06-18] MEDS: Melatonin 3 MG TABLET PO SCH (20:02)
[2020-06-18] MEDS: Aspirin 81 MG TAB.CHEW PO SCH (20:02)
[2020-06-18] MEDS: Gabapentin 300 MG CAPSULE PO SCH (20:02)
[2020-06-18] MEDS: Doxycycline 100 MG CAPSULE PO SCH (20:03)
[2020-06-18] MEDS: *HR* LORazepam 1 MG TABLET PO SCH (21:22)
[2020-06-18] MEDS: Budesonide/Formoterol 160/4.5 1 PUFF INH IH SCH (22:32)
[2020-06-19 03:20] LABS: Hematocrit 37.8 % (37.5-50.1); Hemoglobin 11.3 g/dL (12.9-16.9); Mean Corpuscular HGB Conc 29.9 g/dL (31.6-35.5); Mean Corpuscular Hemoglobin 29.1 pg (28.0-33.3); Mean Corpuscular Volume 97.4 fL (83.0-100.0); Mean Platelet Volume 10.5 fL (9.4-12.4); Platelet Count 175 K/mcL (140-400); Red Blood Count 3.88 M/mcL (4.19-5.50); Red Cell Distribution Width 15.7 % (11.5-14.5); White Blood Count 10.4 K/mcL (4.3-11.1)
[2020-06-19 03:29] LABS: VBG HCO3 36 mEq/L (21-27); VBG PCO2 65 mmHg (41-51); VBG PH 7.35 pH Units (7.32-7.42); VBG PO2 55 mmHg (25-50)
[2020-06-19 03:46] LABS: BUN/Creatinine Ratio 46 (6-26); Blood Urea Nitrogen 43 mg/dL (8-23); Calcium 8.8 mg/dL (8.6-10.3); Carbon Dioxide 35 mEq/L (23-29); Chloride 98 mEq/L (98-107); Glucose 144 mg/dL (70-105); Magnesium 2.3 mg/dL (1.6-2.6); Osmolality,Calculated 301 (280-300); Potassium 4.2 mEq/L (3.5-5.1); Sodium 139 mEq/L (136-145); eGFR For African Americans > 60 (> 60); eGFR For Non-African Americans > 60 (> 60)
[2020-06-19] MEDS: *HR* Heparin 5,000 UNIT/ML VIAL SQ SCH ×2 (05:17→16:17)
[2020-06-19] MEDS: Insulin LISPRO 300 UNITS/3 ML VIAL SUBQ SCH ×3 (07:10→16:18)
[2020-06-19] MEDS: Budesonide/Formoterol 160/4.5 1 PUFF INH IH SCH ×2 (07:20→21:43)
[2020-06-19] MEDS: *HR* LORazepam 1 MG TABLET PO SCH ×2 (08:45→23:23)
[2020-06-19] MEDS: Cholecalciferol (D-3) 1,000 UNIT (25MCG) TABLET PO SCH (08:45)
[2020-06-19] MEDS: Ziprasidone 80 MG CAPSULE PO SCH ×2 (08:45→16:17)
[2020-06-19] MEDS: Furosemide 20 MG TABLET PO SCH (08:45)
[2020-06-19] MEDS: Doxycycline 100 MG CAPSULE PO SCH ×2 (08:45→23:23)
[2020-06-19] MEDS: Ascorbic Acid 500 MG TABLET PO SCH (08:45)
[2020-06-19] MEDS: Gabapentin 300 MG CAPSULE PO SCH ×2 (08:45→23:23)
[2020-06-19] MEDS: Artificial Tears SOLN 15 ML BOTTLE BOTH EYES SCH ×3 (08:46→23:24)
[2020-06-19] MEDS ORDERED: ALOGLIPTIN BENZOATE 12.5 MG PO SCH (09:00)
[2020-06-19] MEDS: Aspirin 81 MG TAB.CHEW PO SCH (23:23)
[2020-06-19] MEDS: Melatonin 3 MG TABLET PO SCH (23:23)
[2020-06-20] MEDS: *HR* Heparin 5,000 UNIT/ML VIAL SQ SCH (05:21)
[2020-06-20] MEDS: Budesonide/Formoterol 160/4.5 1 PUFF INH IH SCH (07:16)
[2020-06-20 07:18] LABS: Basophils % 0.5 %; Eosinophils # 0.3 K/mcL (0.0-0.6); Eosinophils % 3.8 %; Hematocrit 35.6 % (37.5-50.1); Immature Granulocytes % 1.2 % (0-4); Lymphocytes # 2.1 K/mcL (0.6-4.6); Mean Corpuscular HGB Conc 30.9 g/dL (31.6-35.5); Mean Corpuscular Hemoglobin 28.9 pg (28.0-33.3); Mean Corpuscular Volume 93.7 fL (83.0-100.0); Mean Platelet Volume 11.1 fL (9.4-12.4); Monocytes # 0.8 K/mcL (0.0-1.3); Monocytes % 9.4 %; Neutrophils # 4.8 K/mcL (1.6-8.9); Platelet Count 149 K/mcL (140-400); Red Cell Distribution Width 15.8 % (11.5-14.5); Segmented Neutrophils % 59.1 %; White Blood Count 8.1 K/mcL (4.3-11.1)
[2020-06-20] MEDS: Insulin LISPRO 300 UNITS/3 ML VIAL SUBQ SCH ×2 (07:32→12:14)
[2020-06-20] MEDS: Furosemide 20 MG TABLET PO SCH (07:39)
[2020-06-20] MEDS: Artificial Tears SOLN 15 ML BOTTLE BOTH EYES SCH (07:39)
[2020-06-20] MEDS: Doxycycline 100 MG CAPSULE PO SCH (07:39)
[2020-06-20] MEDS: Ascorbic Acid 500 MG TABLET PO SCH (07:39)
[2020-06-20] MEDS: Gabapentin 300 MG CAPSULE PO SCH (07:39)
[2020-06-20] MEDS: Ziprasidone 80 MG CAPSULE PO SCH (07:39)
[2020-06-20] MEDS: *HR* LORazepam 1 MG TABLET PO SCH (07:39)
[2020-06-20] MEDS: Cholecalciferol (D-3) 1,000 UNIT (25MCG) TABLET PO SCH (07:39)
[2020-06-20 08:13] LABS: BUN/Creatinine Ratio 40 (6-26); Blood Urea Nitrogen 43 mg/dL (8-23); Calcium 8.9 mg/dL (8.6-10.3); Carbon Dioxide 33 mEq/L (23-29); Chloride 100 mEq/L (98-107); Glucose 142 mg/dL (70-105); Magnesium 2.2 mg/dL (1.6-2.6); Osmolality,Calculated 301 (280-300); Phosphorous 3.6 mg/dL (2.7-4.5); Potassium 4.2 mEq/L (3.5-5.1); Sodium 139 mEq/L (136-145); eGFR For African Americans > 60 (> 60); eGFR For Non-African Americans > 60 (> 60)
[2020-06-20 11:46] VITALS: BP 127/70
== END 2020-06-20 15:23 | DRG 189 ==
LOC: CDU 06:17 → EMEROOARM 06:17 → CDU 11:36 → 2ANU 20:26
PROVIDERS: ADMIT Internal Medicine; ATTEND Internal Medicine

== ENCOUNTER 2020-08-11 02:04 | Inpatient (IN) ==
[2020-08-11 02:23] LABS: Basophils % 0.6 %; Segmented Neutrophils % 65.5 %
[2020-08-11 02:24] LABS: Eosinophils # 0.5 K/mcL (0.0-0.6); Eosinophils % 7.3 %; Hematocrit 38.4 % (37.5-50.1); Hemoglobin 11.5 g/dL (12.9-16.9); Immature Granulocytes % 0.6 % (0-4); Lymphocytes # 1.1 K/mcL (0.6-4.6); Lymphocytes % 15.1 %; Mean Corpuscular HGB Conc 29.9 g/dL (31.6-35.5); Mean Corpuscular Hemoglobin 28.9 pg (28.0-33.3); Mean Corpuscular Volume 96.5 fL (83.0-100.0); Mean Platelet Volume 10.9 fL (9.4-12.4); Monocytes # 0.8 K/mcL (0.0-1.3); Monocytes % 10.9 %; Neutrophils # 4.7 K/mcL (1.6-8.9); Platelet Count 145 K/mcL (140-400); Red Blood Count 3.98 M/mcL (4.19-5.50); Red Cell Distribution Width 16.6 % (11.5-14.5); White Blood Count 7.2 K/mcL (4.3-11.1)
[2020-08-11 02:32] LABS: VBG HCO3 41 mEq/L (21-27); VBG PCO2 92 mmHg (41-51); VBG PH 7.26 pH Units (7.32-7.42); VBG PO2 36 mmHg (25-50)
[2020-08-11 02:44] LABS: BUN/Creatinine Ratio 21 (6-26); Blood Urea Nitrogen 21 mg/dL (8-23); Carbon Dioxide 38 mEq/L (23-29); Chloride 97 mEq/L (98-107); Glucose 150 mg/dL (70-105); Osmolality,Calculated 296 (280-300); Potassium 4.3 mEq/L (3.5-5.1); Sodium 140 mEq/L (136-145); eGFR For African Americans > 60 (> 60); eGFR For Non-African Americans > 60 (> 60)
[2020-08-11 02:45] LABS: Troponin I < 0.03 ng/mL (< 0.04)
[2020-08-11] MEDS ORDERED: levoFLOXacin 750 MG/150 ML 750 MG/150 ML BAG IVPB ONE (04:19)
[2020-08-11 04:38] LABS: VBG HCO3 42 mEq/L (21-27); VBG PCO2 102 mmHg (41-51); VBG PH 7.23 pH Units (7.32-7.42); VBG PO2 38 mmHg (25-50)
[2020-08-11] MEDS ORDERED: Melatonin 3 MG TABLET PO PRN (04:47)
[2020-08-11] MEDS ORDERED: Naloxone 0.4 MG/ML INJ IVP PRN (04:47)
[2020-08-11] MEDS ORDERED: *HR* Promethazine 25 MG/ML VIAL IM PRN (04:47)
[2020-08-11] MEDS ORDERED: Acetaminophen 325 MG TABLET PO PRN (04:47)
[2020-08-11] MEDS ORDERED: Ondansetron 4 MG/2 ML VIAL IVP PRN (04:47)
[2020-08-11] MEDS ORDERED: methylPREDNISolone 125 MG/2 ML VIAL IVP ONE (04:49)
[2020-08-11] MEDS ORDERED: Ipratropium/Albuterol Neb 3 ML IH PRN (04:50)
[2020-08-11] MEDS ORDERED: Furosemide 40 MG/4 ML VIAL IVP ONE (04:52)
[2020-08-11] MEDS ORDERED: Ipratropium/Albuterol Neb 3 ML IH STA (05:28)
[2020-08-11] MEDS ORDERED: Ipratropium/Albuterol Neb 3 ML ONE (05:30)
[2020-08-11 05:58] LABS: Adenovirus Not Detected (Not Detect); Bordetella Pertussis Not Detected (Not Detect); Chlamydophila pneumoniae Not Detected (Not Detect); Coronavirus 229E Not Detected (Not Detect); Coronavirus HKU1 Not Detected (Not Detect); Coronavirus NL63 Not Detected (Not Detect); Coronavirus OC43 Not Detected (Not Detect); Human Metapneumovirus Not Detected (Not Detect); Human Rhinovirus/Enterovirus Not Detected (Not Detect); Influenza A Subtype 2009 H1 Not Detected (Not Detect); Influenza B Not Detected (Not Detect); Mycoplasma pneumoniae Not Detected (Not Detect); Parainfluenza Virus 1 Not Detected (Not Detect); Parainfluenza Virus 2 Not Detected (Not Detect); Parainfluenza Virus 3 Not Detected (Not Detect); Parainfluenza Virus 4 Not Detected (Not Detect); Respiratory Syncytial Virus Not Detected (Not Detect); SARS-CoV-2 Not Detected (Not Detect)
[2020-08-11] MEDS: Ipratropium/Albuterol Neb 3 ML IH SCH ×5 (08:11→23:39)
[2020-08-11 08:45] LABS: INR 1.1; Prothrombin Time 13.1 Seconds (9.4-12.1)
[2020-08-11 08:52] LABS: Magnesium 2.1 mg/dL (1.6-2.6); Phosphorous 3.4 mg/dL (2.7-4.5)
[2020-08-11] MEDS: *HR* Enoxaparin 40 MG/0.4 ML SYRINGE SQ SCH (10:49)
[2020-08-11] MEDS: MethylPREDNISolone 40 MG/ML VIAL IVP SCH ×2 (10:50→17:04)
[2020-08-11] MEDS: levoFLOXacin 750 MG/150 ML 750 MG/150 ML BAG IVPB SCH ×2 (10:50→11:05)
[2020-08-11] MEDS ORDERED: Furosemide 20 MG TABLET PO SCH (11:15)
[2020-08-11] MEDS: Budesonide/Formoterol 160/4.5 1 PUFF INH IH SCH ×2 (11:25→20:22)
[2020-08-11 16:55] LABS: VBG HCO3 39 mEq/L (21-27); VBG PCO2 87 mmHg (41-51); VBG PH 7.26 pH Units (7.32-7.42); VBG PO2 60 mmHg (25-50)
[2020-08-11] MEDS: Furosemide 40 MG/4 ML VIAL IVP SCH (17:04)
[2020-08-11] MEDS: Ziprasidone 80 MG CAPSULE PO SCH (17:05)
[2020-08-11] MEDS: Aspirin 81 MG TAB.CHEW PO SCH (21:30)
[2020-08-11] MEDS: *HR* LORazepam 1 MG TABLET PO SCH (21:30)
[2020-08-11] MEDS: Melatonin 3 MG TABLET PO SCH (21:30)
[2020-08-12] MEDS: MethylPREDNISolone 40 MG/ML VIAL IVP SCH ×2 (01:04→08:22)
[2020-08-12] MEDS ORDERED: Dextrose Gel 15 GM/37.5 ML TUBE PO PRN ×2 (01:54)
[2020-08-12] MEDS ORDERED: D5% in Water 1,000 ML IVC PRN (01:54)
[2020-08-12] MEDS ORDERED: *HR* Dextrose 50 % in Water (Vial) 50 ML VIAL IVP PRN (01:54)
[2020-08-12] MEDS: Ipratropium/Albuterol Neb 3 ML IH SCH ×6 (04:13→23:16)
[2020-08-12 04:55] LABS: VBG HCO3 38 mEq/L (21-27); VBG PCO2 64 mmHg (41-51); VBG PH 7.39 pH Units (7.32-7.42); VBG PO2 74 mmHg (25-50)
[2020-08-12 05:15] LABS: BUN/Creatinine Ratio 26 (6-26); Blood Urea Nitrogen 30 mg/dL (8-23); Calcium 8.8 mg/dL (8.6-10.3); Carbon Dioxide 39 mEq/L (23-29); Chloride 93 mEq/L (98-107); Glucose 238 mg/dL (70-105); Osmolality,Calculated 294 (280-300); Potassium 4.4 mEq/L (3.5-5.1); Sodium 135 mEq/L (136-145); eGFR For African Americans > 60 (> 60); eGFR For Non-African Americans > 60 (> 60)
[2020-08-12] MEDS: *HR* Enoxaparin 40 MG/0.4 ML SYRINGE SQ SCH (05:59)
[2020-08-12] MEDS: Budesonide/Formoterol 160/4.5 1 PUFF INH IH SCH ×2 (07:29→19:46)
[2020-08-12] MEDS: Insulin LISPRO 300 UNITS/3 ML VIAL SUBQ SCH ×3 (08:20→17:46)
[2020-08-12] MEDS: Furosemide 40 MG/4 ML VIAL IVP SCH ×2 (08:21→17:45)
[2020-08-12] MEDS: Ziprasidone 80 MG CAPSULE PO SCH ×2 (08:22→17:45)
[2020-08-12] MEDS: *HR* LORazepam 1 MG TABLET PO SCH ×2 (08:22→21:53)
[2020-08-12] MEDS ORDERED: levoFLOXacin 750 MG/150 ML 750 MG/150 ML BAG IVPB SCH (09:00)
[2020-08-12] MEDS ORDERED: Insulin LISPRO 300 UNITS/3 ML VIAL SUBQ SCH (21:00)
[2020-08-12] MEDS: Melatonin 3 MG TABLET PO SCH (21:53)
[2020-08-12] MEDS: Aspirin 81 MG TAB.CHEW PO SCH (21:53)
[2020-08-13 01:42] LABS: VBG HCO3 37 mEq/L (21-27); VBG PCO2 52 mmHg (41-51); VBG PH 7.45 pH Units (7.32-7.42); VBG PO2 136 mmHg (25-50)
[2020-08-13 02:00] LABS: BUN/Creatinine Ratio 30 (6-26); Blood Urea Nitrogen 41 mg/dL (8-23); Calcium 8.8 mg/dL (8.6-10.3); Carbon Dioxide 38 mEq/L (23-29); Chloride 93 mEq/L (98-107); Glucose 191 mg/dL (70-105); Osmolality,Calculated 299 (280-300); Potassium 3.8 mEq/L (3.5-5.1); Sodium 137 mEq/L (136-145); eGFR For African Americans > 60 (> 60); eGFR For Non-African Americans 50 (> 60)
[2020-08-13] MEDS: Ipratropium/Albuterol Neb 3 ML IH SCH ×3 (03:20→11:14)
[2020-08-13] MEDS: *HR* Enoxaparin 40 MG/0.4 ML SYRINGE SQ SCH (06:39)
[2020-08-13] MEDS: Budesonide/Formoterol 160/4.5 1 PUFF INH IH SCH (07:16)
[2020-08-13] MEDS: *HR* LORazepam 1 MG TABLET PO SCH (08:09)
[2020-08-13] MEDS: Furosemide 40 MG/4 ML VIAL IVP SCH (08:09)
[2020-08-13] MEDS: Insulin LISPRO 300 UNITS/3 ML VIAL SUBQ SCH ×2 (08:14→11:17)
[2020-08-13] MEDS: Ziprasidone 80 MG CAPSULE PO SCH (10:19)
[2020-08-13 10:25] VITALS: BP 129/73
[2020-08-13 12:20] LABS: Adenovirus Not Detected (Not Detect); Bordetella Pertussis Not Detected (Not Detect); Chlamydophila pneumoniae Not Detected (Not Detect); Coronavirus 229E Not Detected (Not Detect); Coronavirus HKU1 Not Detected (Not Detect); Coronavirus NL63 Not Detected (Not Detect); Coronavirus OC43 Not Detected (Not Detect); Human Metapneumovirus Not Detected (Not Detect); Human Rhinovirus/Enterovirus Not Detected (Not Detect); Influenza A Subtype 2009 H1 Not Detected (Not Detect); Influenza B Not Detected (Not Detect); Mycoplasma pneumoniae Not Detected (Not Detect); Parainfluenza Virus 1 Not Detected (Not Detect); Parainfluenza Virus 2 Not Detected (Not Detect); Parainfluenza Virus 3 Not Detected (Not Detect); Parainfluenza Virus 4 Not Detected (Not Detect); Respiratory Syncytial Virus Not Detected (Not Detect); SARS-CoV-2 Not Detected (Not Detect)
[2020-08-13] MEDS ORDERED: predniSONE 20 MG TABLET PO SCH (15:00)
== END 2020-08-13 13:31 | DRG 189 ==
LOC: 2NNU 02:04 → EMEROOARM 02:04 → SUATTDRO 06:08 → 2NNU 07:56 → CDU 08-13 06:21
PROVIDERS: ADMIT Internal Medicine; ATTEND Internal Medicine

== ENCOUNTER 2020-09-22 20:02 | Inpatient (IN) ==
[2020-09-22] MEDS ORDERED: methylPREDNISolone 125 MG/2 ML VIAL IVP ONE (20:07)
[2020-09-22] MEDS ORDERED: Ipratropium/Albuterol Neb 3 ML IH ONE (20:07)
[2020-09-22 20:39] LABS: Mean Platelet Volume 11.1 fL (9.4-12.4); Red Cell Distribution Width 16.8 % (11.5-14.5)
[2020-09-22 20:40] LABS: Basophils # 0.1 K/mcL (0.0-0.2); Basophils % 0.6 %; Eosinophils # 0.3 K/mcL (0.0-0.6); Eosinophils % 1.8 %; Hematocrit 40.7 % (37.5-50.1); Hemoglobin 12.1 g/dL (12.9-16.9); Immature Granulocytes % 2.3 % (0-4); Lymphocytes # 2.1 K/mcL (0.6-4.6); Lymphocytes % 13.6 %; Mean Corpuscular HGB Conc 29.7 g/dL (31.6-35.5); Mean Corpuscular Hemoglobin 28.3 pg (28.0-33.3); Mean Corpuscular Volume 95.1 fL (83.0-100.0); Monocytes % 6.3 %; Neutrophils # 11.6 K/mcL (1.6-8.9); Platelet Count 197 K/mcL (140-400); Red Blood Count 4.28 M/mcL (4.19-5.50); Segmented Neutrophils % 75.4 %; White Blood Count 15.4 K/mcL (4.3-11.1)
[2020-09-22 20:40] LABS: Bilirubin,Urine Negative (Negative); Blood,Urine Negative (Negative); Clarity,Urine Clear (Clear); Color,Urine Colorless (Yellow); Glucose,Urine (UA) 100 mg/dL (Normal); Hyaline Casts,Urine Few per lpf (None Seen); Ketones,Urine Negative (Negative); Leukocyte Esterase,Urine Small (Negative); Mucus,Urine Few per lpf (None-Few); Nitrite,Urine Negative (Negative); PH,Urine 6.5 pH Units (5.0-8.0); Protein,Urine Trace mg/dL (Neg-Trace); RBC,Urine 0-3 per hpf (0-3); Specific Gravity,Urine 1.012 (1.010-1.025); Squamous Epithelial Cell,Urine Few per hpf (None-Few); Urobilinogen,Urine Normal (Normal)
[2020-09-22 20:53] LABS: Potassium 4.8 mEq/L (3.5-5.1)
[2020-09-22 21:02] LABS: Troponin I 0.05 ng/mL (< 0.04)
[2020-09-22] MEDS ORDERED: Isovue-370 500 ML BOTTLE IVP ONE (22:08)
[2020-09-22] MEDS ORDERED: 0.9 % Sodium Chloride 250 ML IVC SCH (22:15)
[2020-09-22] MEDS ORDERED: Furosemide 40 MG/4 ML VIAL IVP ONE (23:12)
[2020-09-22] MEDS ORDERED: Albuterol 2.5 MG/3 ML NEBULIZER IH PRN (23:13)
[2020-09-22] MEDS ORDERED: Acetaminophen 325 MG TABLET PO PRN (23:14)
[2020-09-22] MEDS ORDERED: Naloxone 0.4 MG/ML INJ IVP PRN (23:14)
[2020-09-22] MEDS ORDERED: Ondansetron 4 MG/2 ML VIAL IVP PRN (23:14)
[2020-09-22] MEDS ORDERED: *HR* Dextrose 50 % in Water (Vial) 50 ML VIAL IVP PRN (23:23)
[2020-09-22] MEDS ORDERED: D5% in Water 1,000 ML IVC PRN (23:23)
[2020-09-22] MEDS ORDERED: Dextrose Gel 15 GM/37.5 ML TUBE PO PRN ×2 (23:23)
[2020-09-22] MEDS: levoFLOXacin 750 MG/150 ML 750 MG/150 ML BAG IVPB SCH (23:52)
[2020-09-23] MEDS: Albuterol 2.5 MG/3 ML NEBULIZER IH SCH ×3 (01:22→07:29)
[2020-09-23 01:41] LABS: Basophils # 0.1 K/mcL (0.0-0.2); Basophils % 0.5 %; Hematocrit 37.8 % (37.5-50.1); Hemoglobin 11.1 g/dL (12.9-16.9); Immature Granulocytes % 1.2 % (0-4); Lymphocytes # 0.4 K/mcL (0.6-4.6); Lymphocytes % 3.5 %; Mean Corpuscular HGB Conc 29.4 g/dL (31.6-35.5); Mean Corpuscular Hemoglobin 27.9 pg (28.0-33.3); Mean Platelet Volume 11.3 fL (9.4-12.4); Monocytes # 0.2 K/mcL (0.0-1.3); Monocytes % 1.2 %; Neutrophils # 11.3 K/mcL (1.6-8.9); Platelet Count 159 K/mcL (140-400); Red Blood Count 3.98 M/mcL (4.19-5.50); Red Cell Distribution Width 16.6 % (11.5-14.5); Segmented Neutrophils % 93.6 %; White Blood Count 12.1 K/mcL (4.3-11.1)
[2020-09-23 01:59] LABS: Albumin 3.7 g/dL (3.5-5.7); Albumin/Globulin Ratio 1.1 (1.1-2.2); Bilirubin,Total 0.3 mg/dL (0.3-1.0); Calcium 9.1 mg/dL (8.6-10.3); Globulin 3.5 g/dL (2.4-3.5); Total Protein 7.2 g/dL (6.4-8.9)
[2020-09-23] MEDS ORDERED: *HR* Heparin 5,000 UNIT/ML VIAL IVP ONE (02:02)
[2020-09-23] MEDS ORDERED: *HR* Heparin 5,000 UNIT/ML VIAL IVP PRN ×2 (02:02)
[2020-09-23] MEDS: Insulin LISPRO 300 UNITS/3 ML VIAL SUBQ SCH ×4 (02:41→18:15)
[2020-09-23] MEDS: Heparin 25,000UNIT/250ML 1/2NS 25,000 UNIT/250 ML IV.SOLN IVC SCH (02:50)
[2020-09-23] MEDS: Melatonin 3 MG TABLET PO SCH ×2 (02:59→20:59)
[2020-09-23 03:08] LABS: Estimated Average Glucose 212 mg/dl
[2020-09-23 03:51] LABS: Hematocrit 36.4 % (37.5-50.1); Mean Corpuscular HGB Conc 30.2 g/dL (31.6-35.5); Mean Corpuscular Hemoglobin 28.3 pg (28.0-33.3); Mean Corpuscular Volume 93.6 fL (83.0-100.0); Mean Platelet Volume 11.2 fL (9.4-12.4); Platelet Count 168 K/mcL (140-400); Red Blood Count 3.89 M/mcL (4.19-5.50); Red Cell Distribution Width 16.8 % (11.5-14.5); White Blood Count 10.4 K/mcL (4.3-11.1)
[2020-09-23 04:06] LABS: Heparin anti-factor XA UFH 0.65 IU/mL (0.30-0.70)
[2020-09-23 04:07] LABS: INR 1.2; Prothrombin Time 13.9 Seconds (9.4-12.1)
[2020-09-23] MEDS ORDERED: *HR* Heparin 5,000 UNIT/ML VIAL SQ SCH (06:00)
[2020-09-23] MEDS: *HR* LORazepam 0.5 MG TABLET PO SCH ×2 (08:20→20:59)
[2020-09-23] MEDS: predniSONE 20 MG TABLET PO SCH (08:20)
[2020-09-23 08:38] LABS: ABG Base Excess 6 mEq/L (-2 to 3); ABG HCO3 32 mEq/L (21-27); ABG Oxygen Saturation 93 % (95-98); ABG PCO2 55 mmHg (35-45); ABG PH 7.38 pH Units (7.32-7.45); ABG PO2 69 mmHg (85-104); ABG TCO2 34 mEq/L (20-26)
[2020-09-23] MEDS ORDERED: Furosemide 20 MG/2 ML VIAL IVP SCH ×3 (09:00→21:00)
[2020-09-23] MEDS: Ipratropium/Albuterol Neb 3 ML IH SCH ×5 (10:07→23:21)
[2020-09-23 10:10] LABS: VBG HCO3 32 mEq/L (21-27); VBG PCO2 76 mmHg (41-51); VBG PH 7.23 pH Units (7.32-7.42); VBG PO2 59 mmHg (25-50)
[2020-09-23] MEDS ORDERED: Perflutren Lipid Microsphere 1.3 ML in 0.9 % Sodium Chloride 8.7 ML IVP PRN (10:40)
[2020-09-23] MEDS: Artificial Tears SOLN 15 ML BOTTLE BOTH EYES SCH ×2 (16:00→21:05)
[2020-09-23] MEDS: Ziprasidone 80 MG CAPSULE PO SCH (18:16)
[2020-09-23] MEDS: Budesonide/Formoterol 160/4.5 1 PUFF INH IH SCH (19:26)
[2020-09-23] MEDS: Gabapentin 300 MG CAPSULE PO SCH (20:59)
[2020-09-23] MEDS: Aspirin 81 MG TAB.CHEW PO SCH (20:59)
[2020-09-23] MEDS ORDERED: Insulin DETEMIR 100 UNIT/ML X5UNITS SUBQ SCH (21:00)
[2020-09-24] MEDS: levoFLOXacin 750 MG/150 ML 750 MG/150 ML BAG IVPB SCH ×2 (00:43→23:51)
[2020-09-24 01:17] LABS: Basophils % 0.1 %; Hematocrit 33.4 % (37.5-50.1); Hemoglobin 9.9 g/dL (12.9-16.9); Immature Granulocytes % 0.8 % (0-4); Lymphocytes # 1.2 K/mcL (0.6-4.6); Lymphocytes % 8.5 %; Mean Corpuscular HGB Conc 29.6 g/dL (31.6-35.5); Mean Corpuscular Hemoglobin 27.5 pg (28.0-33.3); Mean Corpuscular Volume 92.8 fL (83.0-100.0); Mean Platelet Volume 11.4 fL (9.4-12.4); Monocytes # 1.2 K/mcL (0.0-1.3); Monocytes % 8.7 %; Neutrophils # 11.4 K/mcL (1.6-8.9); Platelet Count 159 K/mcL (140-400); Red Cell Distribution Width 16.5 % (11.5-14.5); Segmented Neutrophils % 81.9 %
[2020-09-24 01:34] LABS: Calcium 8.9 mg/dL (8.6-10.3); Magnesium 2.1 mg/dL (1.6-2.6); Phosphorous 3.5 mg/dL (2.7-4.5); Potassium 4.7 mEq/L (3.5-5.1)
[2020-09-24] MEDS: Heparin 25,000UNIT/250ML 1/2NS 25,000 UNIT/250 ML IV.SOLN IVC SCH ×2 (02:03→23:54)
[2020-09-24] MEDS: Ipratropium/Albuterol Neb 3 ML IH SCH ×6 (03:49→23:52)
[2020-09-24] MEDS ORDERED: Furosemide 20 MG/2 ML VIAL IVP SCH (07:21)
[2020-09-24] MEDS: Ziprasidone 80 MG CAPSULE PO SCH ×2 (08:32→16:42)
[2020-09-24] MEDS: Insulin LISPRO 300 UNITS/3 ML VIAL SUBQ SCH ×3 (08:33→16:42)
[2020-09-24] MEDS: Gabapentin 300 MG CAPSULE PO SCH ×2 (08:34→20:53)
[2020-09-24] MEDS: *HR* LORazepam 0.5 MG TABLET PO SCH ×2 (08:34→20:52)
[2020-09-24] MEDS: Artificial Tears SOLN 15 ML BOTTLE BOTH EYES SCH ×3 (08:34→20:54)
[2020-09-24] MEDS: predniSONE 20 MG TABLET PO SCH (08:34)
[2020-09-24] MEDS: Vancomycin 1,750 MG/517.5 ML IV.SOLN IVPB SCH (08:41)
[2020-09-24 09:31] LABS: Acinetobacter baumannii by PCR Not Detected (Not Detect); Candida albicans by PCR Not Detected (Not Detect); Candida glabrata by PCR Not Detected (Not Detect); Candida krusei by PCR Not Detected (Not Detect); Candida parapsilosis by PCR Not Detected (Not Detect); Candida tropicalis by PCR Not Detected (Not Detect); Enterobacter cloacae Cmplx PCR Not Detected (Not Detect); Enterobacteriaceae by PCR Not Detected (Not Detect); Enterococcus by PCR Not Detected (Not Detect); Escherichia coli by PCR Not Detected (Not Detect); Klebsiella oxytoca by PCR Not Detected (Not Detect); Klebsiella pneumoniae by PCR Not Detected (Not Detect); Proteus by PCR Not Detected (Not Detect); Pseudomonas aeruginosa by PCR Not Detected (Not Detect); Serratia marcescens by PCR Not Detected (Not Detect); Staphylococcus aureus by PCR Not Detected (Not Detect); Staphylococcus by PCR DETECTED (Not Detect); Streptococcus agalactiae(B)PCR Not Detected (Not Detect); Streptococcus by PCR Not Detected (Not Detect); Streptococcus pneumoniae PCR Not Detected (Not Detect); Streptococcus pyogenes (A) PCR Not Detected (Not Detect); mecA Methicillin-Resist Gene DETECTED (Not Detect)
[2020-09-24] MEDS: Budesonide/Formoterol 160/4.5 1 PUFF INH IH SCH ×2 (11:22→20:13)
[2020-09-24] MEDS ORDERED: acetaZOLAMIDE 250 MG in Water for inj. (sterile) 2.5 ML IVP SCH (13:00)
[2020-09-24] MEDS: Aspirin 81 MG TAB.CHEW PO SCH (20:52)
[2020-09-24] MEDS: Melatonin 3 MG TABLET PO SCH (20:52)
[2020-09-24] MEDS: Furosemide 40 MG/4 ML VIAL IVP SCH (20:53)
[2020-09-24] MEDS: Insulin DETEMIR 100 UNIT/ML X5UNITS SUBQ SCH (22:12)
[2020-09-25 01:54] LABS: Basophils % 0.2 %; Hematocrit 31.4 % (37.5-50.1); Immature Granulocytes % 1.1 % (0-4); Lymphocytes # 1.4 K/mcL (0.6-4.6); Lymphocytes % 11.7 %; Mean Corpuscular HGB Conc 31.8 g/dL (31.6-35.5); Mean Corpuscular Hemoglobin 28.5 pg (28.0-33.3); Mean Corpuscular Volume 89.5 fL (83.0-100.0); Mean Platelet Volume 11.7 fL (9.4-12.4); Monocytes # 1.1 K/mcL (0.0-1.3); Neutrophils # 9.1 K/mcL (1.6-8.9); Platelet Count 158 K/mcL (140-400); Red Blood Count 3.51 M/mcL (4.19-5.50); Red Cell Distribution Width 16.4 % (11.5-14.5); White Blood Count 11.6 K/mcL (4.3-11.1)
[2020-09-25 02:15] LABS: Calcium 8.7 mg/dL (8.6-10.3); Potassium 4.2 mEq/L (3.5-5.1)
[2020-09-25] MEDS: Ipratropium/Albuterol Neb 3 ML IH SCH ×5 (03:59→19:58)
[2020-09-25] MEDS: Budesonide/Formoterol 160/4.5 1 PUFF INH IH SCH ×2 (07:36→19:58)
[2020-09-25] MEDS: Insulin LISPRO 300 UNITS/3 ML VIAL SUBQ SCH ×3 (08:14→17:23)
[2020-09-25] MEDS: Gabapentin 300 MG CAPSULE PO SCH ×2 (08:14→20:57)
[2020-09-25] MEDS: Ziprasidone 80 MG CAPSULE PO SCH ×2 (08:14→17:24)
[2020-09-25] MEDS: Artificial Tears SOLN 15 ML BOTTLE BOTH EYES SCH ×3 (08:14→20:57)
[2020-09-25] MEDS: predniSONE 20 MG TABLET PO SCH (08:14)
[2020-09-25] MEDS: Vancomycin 1,750 MG/517.5 ML IV.SOLN IVPB SCH (08:15)
[2020-09-25] MEDS: Furosemide 40 MG/4 ML VIAL IVP SCH ×2 (08:15→20:56)
[2020-09-25] MEDS: Insulin DETEMIR 100 UNIT/ML X5UNITS SUBQ SCH ×2 (08:16→20:58)
[2020-09-25 17:13] LABS: Adenovirus Not Detected (Not Detect); Bordetella Pertussis Not Detected (Not Detect); Chlamydophila pneumoniae Not Detected (Not Detect); Coronavirus 229E Not Detected (Not Detect); Coronavirus HKU1 Not Detected (Not Detect); Coronavirus NL63 Not Detected (Not Detect); Coronavirus OC43 Not Detected (Not Detect); Human Metapneumovirus Not Detected (Not Detect); Human Rhinovirus/Enterovirus Not Detected (Not Detect); Influenza A Subtype 2009 H1 Not Detected (Not Detect); Influenza B Not Detected (Not Detect); Mycoplasma pneumoniae Not Detected (Not Detect); Parainfluenza Virus 1 Not Detected (Not Detect); Parainfluenza Virus 2 Not Detected (Not Detect); Parainfluenza Virus 3 Not Detected (Not Detect); Parainfluenza Virus 4 Not Detected (Not Detect); Respiratory Syncytial Virus Not Detected (Not Detect); SARS-CoV-2 Not Detected (Not Detect)
[2020-09-25] MEDS: *HR* Heparin 5,000 UNIT/ML VIAL SQ SCH (17:24)
[2020-09-25] MEDS: Melatonin 3 MG TABLET PO SCH (20:57)
[2020-09-25] MEDS: Aspirin 81 MG TAB.CHEW PO SCH (20:57)
[2020-09-25] MEDS: *HR* LORazepam 0.5 MG TABLET PO SCH (20:57)
[2020-09-25] MEDS: levoFLOXacin 750 MG/150 ML 750 MG/150 ML BAG IVPB SCH (23:19)
[2020-09-26] MEDS: Ipratropium/Albuterol Neb 3 ML IH SCH ×7 (00:06→23:41)
[2020-09-26] MEDS: *HR* Heparin 5,000 UNIT/ML VIAL SQ SCH ×2 (05:02→17:08)
[2020-09-26] MEDS: Budesonide/Formoterol 160/4.5 1 PUFF INH IH SCH ×2 (07:17→19:28)
[2020-09-26] MEDS: Insulin LISPRO 300 UNITS/3 ML VIAL SUBQ SCH ×3 (09:12→17:08)
[2020-09-26] MEDS: Artificial Tears SOLN 15 ML BOTTLE BOTH EYES SCH ×3 (09:30→20:15)
[2020-09-26] MEDS: predniSONE 20 MG TABLET PO SCH (09:30)
[2020-09-26] MEDS: Gabapentin 300 MG CAPSULE PO SCH ×2 (09:30→20:15)
[2020-09-26] MEDS: Furosemide 40 MG/4 ML VIAL IVP SCH (09:30)
[2020-09-26] MEDS: Vancomycin 1,750 MG/517.5 ML IV.SOLN IVPB SCH (09:30)
[2020-09-26] MEDS: Insulin DETEMIR 100 UNIT/ML X5UNITS SUBQ SCH ×2 (09:30→20:15)
[2020-09-26] MEDS: Ziprasidone 80 MG CAPSULE PO SCH ×2 (09:30→17:08)
[2020-09-26] MEDS: Furosemide 40 MG TABLET PO SCH (17:08)
[2020-09-26] MEDS: Aspirin 81 MG TAB.CHEW PO SCH (20:14)
[2020-09-26] MEDS: *HR* LORazepam 0.5 MG TABLET PO SCH (20:14)
[2020-09-26] MEDS: Melatonin 3 MG TABLET PO SCH (20:15)
[2020-09-26] MEDS ORDERED: levoFLOXacin 750 MG TABLET PO SCH (23:00)
[2020-09-27] MEDS: Ipratropium/Albuterol Neb 3 ML IH SCH ×2 (03:34→07:23)
[2020-09-27] MEDS: *HR* Heparin 5,000 UNIT/ML VIAL SQ SCH (04:48)
[2020-09-27] MEDS: Budesonide/Formoterol 160/4.5 1 PUFF INH IH SCH (07:24)
[2020-09-27 07:27] VITALS: O2SAT 93
[2020-09-27 07:28] VITALS: BP 122/72; PULSE 64; TEMP 97.6
[2020-09-27] MEDS: Ziprasidone 80 MG CAPSULE PO SCH (07:29)
[2020-09-27] MEDS: Artificial Tears SOLN 15 ML BOTTLE BOTH EYES SCH (07:29)
[2020-09-27] MEDS: Furosemide 40 MG TABLET PO SCH (07:29)
[2020-09-27] MEDS: Gabapentin 300 MG CAPSULE PO SCH (07:29)
[2020-09-27] MEDS: Insulin DETEMIR 100 UNIT/ML X5UNITS SUBQ SCH (07:29)
[2020-09-27] MEDS: Insulin LISPRO 300 UNITS/3 ML VIAL SUBQ SCH (07:29)
[2020-09-27] MEDS ORDERED: predniSONE 20 MG TABLET PO SCH (09:00)
== END 2020-09-27 10:10 | DRG 871 ==
LOC: 2NENU 20:02 → EMEROOARM 20:02 → SUATTDRO 23:45 → 2NENU 09-23 00:50
PROVIDERS: ADMIT Internal Medicine; ATTEND Internal Medicine

== ENCOUNTER 2021-07-25 15:05 | Observation (INO) ==
[2021-07-25 16:41] LABS: Basophils % 0.8 %; Hemoglobin 11.2 g/dL (12.9-16.9); Immature Platelets 9.2 % (1.1-6.1)
[2021-07-25 16:52] LABS: Basophils # 0.1 K/mcL (0.0-0.2); Eosinophils # 0.1 K/mcL (0.0-0.6); Eosinophils % 0.9 %; Hematocrit 37.2 % (37.5-50.1); Immature Granulocytes % 1.7 % (0-4); Lymphocytes # 2.2 K/mcL (0.6-4.6); Lymphocytes % 22.5 %; Mean Corpuscular HGB Conc 30.1 g/dL (31.6-35.5); Mean Corpuscular Hemoglobin 28.9 pg (28.0-33.3); Mean Corpuscular Volume 95.9 fL (83.0-100.0); Mean Platelet Volume 11.6 fL (9.4-12.4); Monocytes # 0.6 K/mcL (0.0-1.3); Monocytes % 6.5 %; Neutrophils # 6.6 K/mcL (1.6-8.9); Platelet Count 153 K/mcL (140-400); Red Blood Count 3.88 M/mcL (4.19-5.50); Red Cell Distribution Width 17.4 % (11.5-14.5); Segmented Neutrophils % 67.6 %; White Blood Count 9.7 K/mcL (4.3-11.1)
[2021-07-25 17:00] LABS: BUN/Creatinine Ratio 16 (6-26); Blood Urea Nitrogen 24 mg/dL (8-23); Calcium 9.1 mg/dL (8.6-10.3); Carbon Dioxide 38 mEq/L (23-29); Chloride 95 mEq/L (98-107); Glucose 271 mg/dL (70-105); Osmolality,Calculated 306 (280-300); Potassium 4.1 mEq/L (3.5-5.1); Sodium 141 mEq/L (136-145); Troponin I < 0.03 ng/mL (< 0.04); eGFR For African Americans 54 (> 60); eGFR For Non-African Americans 44 (> 60)
[2021-07-25 17:05] LABS: INR 1.1
[2021-07-25 17:06] LABS: Influenza A PCR Negative (Negative); Influenza B PCR Negative (Negative); Resp. Syncytial Virus PCR Negative (Negative)
[2021-07-25 17:08] LABS: Activated Partial Thrombo Time 27.3 Seconds (26.0-36.0)
[2021-07-25 17:31] LABS: SARS-CoV-2 by PCR (In House) Negative (Negative)
[2021-07-25] MEDS ORDERED: Ipratropium/Albuterol Neb 3 ML IH ONE (18:26)
[2021-07-25] MEDS ORDERED: Furosemide 20 MG/2 ML VIAL IVP ONE (18:32)
[2021-07-25] MEDS ORDERED: Melatonin 3 MG TABLET PO PRN (20:13)
[2021-07-25] MEDS ORDERED: Naloxone 0.4 MG/ML INJ IVP PRN (20:13)
[2021-07-25] MEDS ORDERED: Dextrose Gel 15 GM/37.5 ML TUBE PO PRN ×2 (20:27)
[2021-07-25] MEDS ORDERED: *HR* Dextrose 50 % in Water (Syg) 50 ML SYRINGE IVP PRN (20:27)
[2021-07-25] MEDS ORDERED: D5% in Water 1,000 ML IVC PRN (20:27)
[2021-07-25] MEDS: *HR* LORazepam 0.5 MG TABLET PO SCH (21:39)
[2021-07-25] MEDS: Insulin LISPRO 300 UNITS/3 ML VIAL SUBQ SCH (21:39)
[2021-07-25] MEDS: Gabapentin 300 MG CAPSULE PO SCH (21:39)
[2021-07-25] MEDS: Melatonin 3 MG TABLET PO SCH (21:39)
[2021-07-25] MEDS: MethylPREDNISolone 40 MG/ML VIAL IVP SCH (21:39)
[2021-07-25] MEDS: Insulin DETEMIR 100 UNIT/ML X5UNITS SUBQ SCH (21:40)
[2021-07-25] MEDS: Ipratropium/Albuterol Neb 3 ML IH SCH (22:15)
[2021-07-26] MEDS: MethylPREDNISolone 40 MG/ML VIAL IVP SCH ×3 (02:15→16:50)
[2021-07-26] MEDS: Ipratropium/Albuterol Neb 3 ML IH SCH ×4 (03:49→20:43)
[2021-07-26 05:26] LABS: Basophils % 0.4 %; Hematocrit 35.6 % (37.5-50.1); Hemoglobin 10.9 g/dL (12.9-16.9); Immature Granulocytes % 1.8 % (0-4); Lymphocytes # 0.5 K/mcL (0.6-4.6); Lymphocytes % 5.4 %; Mean Corpuscular HGB Conc 30.6 g/dL (31.6-35.5); Mean Corpuscular Hemoglobin 29.4 pg (28.0-33.3); Mean Platelet Volume 11.4 fL (9.4-12.4); Monocytes # 0.1 K/mcL (0.0-1.3); Monocytes % 0.9 %; Neutrophils # 8.5 K/mcL (1.6-8.9); Platelet Count 144 K/mcL (140-400); Red Blood Count 3.71 M/mcL (4.19-5.50); Red Cell Distribution Width 17.3 % (11.5-14.5); Segmented Neutrophils % 91.5 %; White Blood Count 9.3 K/mcL (4.3-11.1)
[2021-07-26 05:37] LABS: Albumin 3.6 g/dL (3.5-5.7); Albumin/Globulin Ratio 1.1 (1.1-2.2); Bilirubin,Total 0.3 mg/dL (0.3-1.0); Calcium 8.8 mg/dL (8.6-10.3); Globulin 3.2 g/dL (2.4-3.5); Magnesium 2.4 mg/dL (1.6-2.6); Phosphorous 2.8 mg/dL (2.7-4.5); Potassium 4.8 mEq/L (3.5-5.1); Total Protein 6.8 g/dL (6.4-8.9)
[2021-07-26] MEDS: *HR* Heparin 5,000 UNIT/ML VIAL SQ SCH ×2 (06:00→16:51)
[2021-07-26] MEDS: Gabapentin 300 MG CAPSULE PO SCH ×2 (08:21→20:31)
[2021-07-26] MEDS: Ziprasidone 80 MG CAPSULE PO SCH ×2 (08:21→16:51)
[2021-07-26] MEDS: Vancomycin Oral Soln 125 MG/2.5 ML UDC PO SCH (08:21)
[2021-07-26] MEDS: Insulin DETEMIR 100 UNIT/ML X5UNITS SUBQ SCH ×2 (08:22→20:31)
[2021-07-26] MEDS: Insulin LISPRO 300 UNITS/3 ML VIAL SUBQ SCH ×4 (08:24→23:24)
[2021-07-26] MEDS: Azithromycin 250 MG TABLET PO SCH (12:41)
[2021-07-26] MEDS: *HR* LORazepam 0.5 MG TABLET PO SCH (20:31)
[2021-07-26] MEDS: Melatonin 3 MG TABLET PO SCH (20:31)
[2021-07-27] MEDS: Ipratropium/Albuterol Neb 3 ML IH SCH ×2 (03:58→09:40)
[2021-07-27] MEDS: *HR* Heparin 5,000 UNIT/ML VIAL SQ SCH (06:12)
[2021-07-27] MEDS: MethylPREDNISolone 40 MG/ML VIAL IVP SCH (06:12)
[2021-07-27 08:02] LABS: Calcium 8.8 mg/dL (8.6-10.3); Magnesium 2.5 mg/dL (1.6-2.6); Phosphorous 3.3 mg/dL (2.7-4.5); Potassium 4.4 mEq/L (3.5-5.1)
[2021-07-27] MEDS: Azithromycin 250 MG TABLET PO SCH (08:45)
[2021-07-27] MEDS: Ziprasidone 80 MG CAPSULE PO SCH (08:45)
[2021-07-27] MEDS: Insulin DETEMIR 100 UNIT/ML X5UNITS SUBQ SCH (08:46)
[2021-07-27] MEDS: Vancomycin Oral Soln 125 MG/2.5 ML UDC PO SCH (08:46)
[2021-07-27] MEDS: Gabapentin 300 MG CAPSULE PO SCH (08:46)
[2021-07-27] MEDS: Insulin LISPRO 300 UNITS/3 ML VIAL SUBQ SCH ×2 (08:47→12:47)
[2021-07-27 11:16] VITALS: BP 112/70; PULSE 92; TEMP 97.7; O2SAT 93
== END 2021-07-27 15:05 ==
LOC: 3NENU 15:05 → EMEROOARM 15:05 → SUATTDRO 19:39 → 3NENU 20:10
PROVIDERS: ADMIT Family Medicine; ATTEND Internal Medicine